=== PATIENT | female | born 1980 | race American Indian/Alaskan Native ===

== ENCOUNTER 2017-02-11 11:31 | Emergency (ER) | payer BC, MEDICAID, MEDICARE, OTHER ==
[2017-02-11 12:05] VITALS: BP 118/69
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
[2017-02-11] MEDS ORDERED: Sodium Chloride 0.9% 10 ML Syringe FLUSH PRN (12:38)
[2017-02-11] MEDS ORDERED: HYDROmorphone 0.5 MG/0.5 ML Syringe IVPUSH ONE ×2 (12:38→14:18)
--- NOTE | 2017-02-11 14:27 | CR ---
Left knee: AP, lateral and sunrise patellar views of the left knee were obtained. Comparison: No previous knee study. Medial and lateral joint spaces are maintained in height. No joint effusion is seen. No fracture or other bony abnormality is seen. Impression: 1. No bony abnormality is identified on left knee exam. Diagnostic code #1
--- NOTE | 2017-02-11 14:27 | CR ---
Right knee: AP, lateral and sunrise patellar views of the right knee were obtained. Comparison: No previous knee study. Medial and lateral joint spaces are preserved. No joint effusion is seen. Patellofemoral joint is within normal limits. No fracture or dislocation is seen. Impression: 1. No abnormality is identified on three-view right knee exam. Diagnostic code #1
--- NOTE | 2017-02-11 14:27 | CR ---
Lumbar spine: AP, lateral and coned-down lateral views centered to the lumbosacral junction were obtained. Comparison: No previous lumbar spine imaging. Vertebral body heights and disc spaces are preserved. Pedicles as well as transverse and spinous processes are intact. No fracture or subluxation is seen. Incidental surgical clips seen overlying the left sacrum. Oval metallic density overlies the left upper abdomen. No fracture or subluxation is seen. Impression: 1. Incidental surgical material. 2. Three-view lumbar spine study is otherwise unremarkable. Diagnostic code #2
== END 2017-02-11 14:45 | disposition home or self-care (01) ==
LOC: JD.ED 11:31
DX: M54.41 Lumbago with sciatica, right side (principal); M25.561 Pain in right knee; J45.909 Unspecified asthma, uncomplicated; J44.9 Chronic obstructive pulmonary disease, unspecified; Z90.49 Acquired absence of other specified parts of digestive tract; Z98.890 Other specified postprocedural states; F17.210 Nicotine dependence, cigarettes, uncomplicated; Z91.040 Latex allergy status; Z79.899 Other long term (current) drug therapy; W01.0XXA Fall on same level from slipping, tripping and stumbling without subsequent striking against object, initial encounter
CPT/HCPCS: 72100; 73562; 96374; 96376; 99284; J1170; J7050

== ENCOUNTER 2017-03-13 17:27 | Inpatient (IN) | payer BC, MEDICAID, MEDICARE, OTHER ==
[2017-03-13] MEDS ORDERED: Ondansetron 4 MG/2 ML SDV IVPUSH ONE ×2 (17:50→20:34)
[2017-03-13] MEDS ORDERED: Sodium Chloride 0.9% 10 ML Syringe FLUSH PRN (17:50)
[2017-03-13] MEDS ORDERED: Sodium Chloride 0.9% 1,000 ML IV STA (17:50)
[2017-03-13] MEDS ORDERED: HYDROmorphone 1 MG/ML Syringe IVPUSH ONE ×2 (17:52→19:20)
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
[2017-03-13] MEDS ORDERED: Sodium Chloride 0.9% 10 ML Syringe FLUSH ONE (19:18)
[2017-03-13] MEDS ORDERED: Iopamidol 612 MG/ML 150 ML Bottle IVPUSH ONE (19:18)
[2017-03-13] MEDS ORDERED: Diatrizoate Meglumine/Diatrizoate Sodium 37% 120 ML Bottle PO ONE (19:18)
--- NOTE | 2017-03-13 21:09 | CT ---
CT abdomen and pelvis Technique: Multiple axial sections were obtained from above the dome of the diaphragm inferiorly through the pubic symphysis. Intravenous contrast was utilized. No oral contrast has been given. Delayed images were obtained through the bladder. Comparison: Previous CT abdomen and pelvis exam of 04/11/16. Findings: Diffuse dilated small bowel is seen. Multiple loops of small bowel are seen which contain fluid. Distal small bowel appears decompressed. Etiology for this mid to distal small bowel obstruction is not seen and findings may relate to adhesions. Visualized lung bases shows nothing acute. Liver shows no focal parenchymal abnormality. Surgical clips are seen from previous cholecystectomy. Spleen appears within normal limits. Adrenal glands show no nodule. Pancreas appears within normal limits. Kidneys show symmetric contrast enhancement without hydronephrosis or mass. Aorta shows no aneurysmal dilatation. No retroperitoneal adenopathy or mesenteric abnormalities are seen. No pelvic mass or adenopathy is seen. Mild amount of fluid is seen within the cul-de-sac which is likely reactive from the small bowel obstruction. Delayed images shows contrast within the bladder. Previous gastric bypass surgery is noted. Mild increased stool is noted within the right, transverse and descending colons. Bone window settings were reviewed which appear within normal limits for the patient's age. Impression: 1. Dilated small bowel loops containing fluid. Etiology for this finding is not seen and findings are felt compatible with obstruction within the mid to distal small bowel. Findings most likely relate to adhesions. 2. Other incidental findings. Findings are fairly similar to previous CT exam. Diagnostic code #3
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
[2017-03-13] MEDS ORDERED: Metoprolol Tartrate 5 MG/5 ML SDV IVPUSH PRN (21:57)
[2017-03-13] MEDS ORDERED: hydrALAZINE 20 MG/ML SDV IVPUSH PRN (21:57)
[2017-03-13] MEDS ORDERED: LORazepam 2 MG/ML MDV IV PRN (21:58)
[2017-03-13] MEDS ORDERED: Temazepam 15 MG Cap PO PRN (21:58)
[2017-03-13] MEDS ORDERED: Polyethylene Glycol 3350 Powder 17 GM Packet PO PRN (21:58)
[2017-03-13] MEDS ORDERED: Albuterol/Ipratropium 3.0-0.5 MG/3 ML Neb Soln NEB PRN (21:58)
[2017-03-13] MEDS ORDERED: Bisacodyl 5 MG Tab PO PRN (21:58)
[2017-03-13] MEDS ORDERED: Acetaminophen 325 MG Tab PO PRN (21:58)
[2017-03-13] MEDS ORDERED: Scopolamine 1.5 MG Transdermal Patch TOP ONE (22:04)
[2017-03-13] MEDS ORDERED: diphenhydrAMINE 50 MG/ML SDV IVPUSH ONE (22:06)
[2017-03-13] MEDS ORDERED: SUMAtriptan 50 MG Tab PO PRN (22:07)
[2017-03-13] MEDS: HYDROmorphone 1 MG/ML Syringe IVPUSH PRN (22:28)
[2017-03-13] MEDS: Metoclopramide 10 MG/2 ML SDV IVPUSH SCH (22:31)
[2017-03-14] MEDS: Dextrose 5%-0.45% NaCl 1,000 ML IV SCH ×3 (01:11→22:25)
[2017-03-14] MEDS: HYDROmorphone 1 MG/ML Syringe IVPUSH PRN ×4 (01:11→20:58)
[2017-03-14] MEDS ORDERED: Flu Vaccine 2016-17(36Mos+)/PF 60 MCG/0.5 ML Syringe IM ONE (01:47)
[2017-03-14] MEDS: Metoclopramide 10 MG/2 ML SDV IVPUSH SCH ×4 (04:16→22:27)
[2017-03-14] MEDS ORDERED: Formoterol/Mometasone 200-5 MCG 8.8 GM Inhaler IH SCH (06:00)
--- NOTE | 2017-03-14 06:50 | PCM.PN ---
- General Info Date of Service: 03/14/17 Admission Dx/Problem (Free Text): Small Bowel Obstruction 2/2 Adhesions and Acute Pancreatitis Subjective Update: Follow Up Functional Status: Reports: pain controlled, urinating. Denies: new symptoms - Review of Systems General: Denies: Fever, Weakness, Fatigue, Malaise, Chills HEENT: Reports: no symptoms Pulmonary: Denies: shortness of breath Cardiovascular: Denies: Chest Pain Gastrointestinal: Reports: Abdominal pain, Decreased appetite, Nausea Genitourinary: Reports: no symptoms Musculoskeletal: Reports: back pain, joint pain Skin: Reports: no symptoms Neurological: Reports: No Symptoms. Denies: Confusion, Difficulty Walking, Weakness, Gait Disturbance Psychiatric: Denies: depression, anxiety, agitation, cravings, hallucinations, suicidal ideation, homicidal ideation Systems Review Comment:: No overnight issues. She feels better. Pain is controlled. She has no new complaints. She is not passing gas. - Patient Data Vitals - most recent: Last Vital Signs Temp 36.8 C 03/14/17 04:23 Pulse 87 03/14/17 04:23 Resp 18 03/14/17 04:23 BP 129/74 03/14/17 04:23 Pulse Ox 93 L 03/14/17 04:23 Weight - most recent: 130.209 kg I&O - last 24 hours: Intake & Output 03/13/17 03/13/17 03/14/17 14:59 22:59 06:59 Intake Total 600 Output Total 1050 Balance -450 Lab Results last 24 hrs: Laboratory Results - last 24 hr 03/14/17 Range/Units 05:40 WBC 12.01 H (3.98-10.04) K/mm3 RBC 4.84 (3.98-5.22) M/mm3 Hgb 14.0 (11.2-15.7) gm/L Hct 43.6 (34.1-44.9) % MCV 90.1 (79.4-94.8) fl MCH 28.9 (25.6-32.2) pg MCHC 32.1 L (32.2-35.5) g/dl RDW Std Deviation 43.6 (36.4-46.3) fL Plt Count 394 H (182-369) K/mm3 MPV 10.4 (9.4-12.3) fl Neut % (Auto) 77.3 H (34.0-71.1) % Lymph % (Auto) 12.9 L (19.3-51.7) % [place] % (Auto) 8.9 (4.7-12.5) % Eos % (Auto) 0.5 L (0.7-5.8) Baso % (Auto) 0.2 (0.1-1.2) % Neut # (Auto) 9.29 H (1.56-6.13) K/mm3 Lymph # (Auto) 1.55 (1.18-3.74) K/mm3 [place] # (Auto) 1.07 H (0.24-0.36) K/mm3 Eos # (Auto) 0.06 (0.04-0.36) K/mm3 Baso # (Auto) 0.02 (0.01-0.08) K/mm3 Med Orders - Current: Current Medications Acetaminophen (Tylenol) 650 mg PO Q4H PRN PRN Reason: Pain (Mild 1-3)/fever Hydrocodone Bitart/Acetaminophen ([place] 325-5 Mg) 1 tab PO Q4H PRN PRN Reason: Pain (moderate 4-6) Albuterol/Ipratropium (Duoneb 3.0-0.5 Mg/3 Ml) 3 ml NEB Q4H PRN PRN Reason: Shortness Of Breath/wheezing Bisacodyl (Dulcolax) 5 mg PO DAILY PRN PRN Reason: Constipation Bupropion HCl (Wellbutrin Xl) 150 mg PO DAILY [facility] Duloxetine HCl (Cymbalta) 60 mg PO DAILY [facility] Enoxaparin Sodium (Lovenox) 40 mg SUBCUT Q12HR [facility] Famotidine (Pepcid) 20 mg IVPUSH BID [facility] Hydralazine HCl (Apresoline) 20 mg IVPUSH Q4H PRN PRN Reason: Hypertension Hydromorphone HCl (Dilaudid) 1 mg IVPUSH Q4H PRN PRN Reason: Pain (severe 7-10) Last Admin: 03/14/17 01:11 Dose: 1 mg Dextrose/Sodium Chloride (Dextrose 5%-1/2 Ns) 1,000 mls @ 125 mls/hr IV ASDIRECTED RUBEN Last Admin: 03/14/17 01:11 Dose: 125 mls/hr Erythromycin Lactobionate 250 (mg/ Sodium Chloride) 100 mls @ 100 mls/hr IV Q6H [facility] Last Admin: 03/14/17 04:16 Dose: 100 mls/hr Lorazepam (Ativan) 1 mg IV Q6H PRN PRN Reason: Anxiety Magnesium Sulfate (Pharmacy To Dose - Magnesium Replacement) 1 dose .XX ASDIRECTED [facility] Metoclopramide HCl (Reglan) 10 mg IVPUSH Q6H [facility] Last Admin: 03/14/17 04:16 Dose: 10 mg Metoprolol Tartrate (Lopressor) 5 mg IVPUSH Q4H PRN PRN Reason: Tachycardia Mometasone Furoate/Formoterol Fumar (Dulera 200-5 Mcg) 2 puff IH BID [facility] Montelukast Sodium (Singulair) 10 mg PO DAILY [facility] (Magnesium Citrate [ Magnesium Citrate] 100 Mg) Own Med * 100 mg PO BEDTIME [facility] Polyethylene Glycol (Miralax) 17 gm PO DAILY PRN PRN Reason: Constipation Potassium Chloride (Pharmacy To Dose - Potassium Replacement) 1 dose .XX ASDIRECTED [facility] Pregabalin (Lyrica) 225 mg PO BID [facility] Propranolol HCl (Inderal) 10 mg PO BID [facility] Quetiapine Fumarate (Seroquel) 50 mg PO BEDTIME [facility] Quetiapine Fumarate (Seroquel) 25 mg PO BID [facility] Senna/Docusate Sodium (Senna Plus) 1 tab PO BID PRN PRN Reason: Constipation Sodium Chloride (Saline Flush) 10 ml FLUSH ASDIRECTED PRN PRN Reason: Keep Vein Open Last Admin: 03/13/17 18:02 Dose: 10 ml Sumatriptan Succinate (Imitrex) 50 mg PO ASDIRECTED PRN PRN Reason: Pain Temazepam (Restoril) 30 mg PO BEDTIME PRN PRN Reason: Sleep Discontinued Medications Diatrizoate Meglum/Diatrizoate Sod (Gastrografin 37%) 90 ml PO ONETIME ONE Stop: 03/13/17 19:19 Last Admin: 03/14/17 00:07 Dose: Not Given Diphenhydramine HCl (Benadryl) 25 mg IVPUSH ONETIME ONE Stop: 03/13/17 22:07 Last Admin: 03/13/17 22:34 Dose: 25 mg Hydromorphone HCl (Dilaudid) 1 mg IVPUSH ONETIME ONE Stop: 03/13/17 17:53 Last Admin: 03/13/17 18:03 Dose: 1 mg Hydromorphone HCl (Dilaudid) 1 mg IVPUSH ONETIME ONE Stop: 03/13/17 19:21 Last Admin: 03/13/17 19:26 Dose: 1 mg Sodium Chloride (Normal Saline) 1,000 mls @ 1,000 mls/hr IV .BOLUS STA Stop: 03/13/17 18:49 Last Admin: 03/13/17 18:02 Dose: 1,000 mls/hr Influenza Virus Vaccine (Fluzone/Fluarix Vaccine) 60 mcg IM .ONCE ONE Stop: 03/14/17 01:48 Iopamidol (Isovue-300 (61%)) 150 ml IVPUSH ONETIME ONE Stop: 03/13/17 19:19 Last Admin: 03/13/17 19:40 Dose: 150 ml Mometasone Furoate/Formoterol Fumar (Dulera 200-5 Mcg) 0 puff IH BIDRT [facility] Ondansetron HCl (Zofran) 4 mg IVPUSH ONETIME ONE Stop: 03/13/17 17:51 Last Admin: 03/13/17 18:02 Dose: 4 mg Ondansetron HCl (Zofran) 4 mg IVPUSH ONETIME ONE Stop: 03/13/17 20:35 Last Admin: 03/13/17 20:40 Dose: 4 mg Scopolamine (Transderm-Scop) 1.5 mg TOP ONETIME ONE Stop: 03/13/17 22:05 Last Admin: 03/13/17 22:40 Dose: 1.5 mg Sodium Chloride (Saline Flush) 10 ml FLUSH ONETIME ONE Stop: 03/13/17 19:19 Last Admin: 03/13/17 19:40 Dose: 10 ml - Exam General: alert, oriented, cooperative, no acute distress, other (Morbid Obesity) HEENT: Pupils equal, Pupils reactive, EOMI, Mucous membr. moist/pink, Other (NGT ) Neck: supple, trachea midline, no JVD, no thyromegaly Lungs: Clear to auscultation, Normal respiratory effort Cardiovascular: Regular Rate, Regular Rhythm Abdomen: soft, no distension, tenderness, abnormal bowel sounds. No: rigidity, rebound, guarding (Female) Exam: Deferred Back Exam: normal inspection, decreased range of motion Extremities: no edema, normal pulses, no tenderness/swelling, no clubbing, no cyanosis, no calf tenderness Peripheral Pulses: 2+: posterior tibial (L), posterior tibial (R), dorsalis pedis (L), dorsalis pedis (R) Skin: warm, dry, intact Neurological: no new focal deficit Psy/Mental Status: alert, normal affect, normal mood - Problem List Review Problem List Initiated/Reviewed/Updated: Yes - My Orders Last 24 Hours: My Active Orders 03/13/17 21:57 Metoprolol Tartrate [Lopressor] 5 mg IVPUSH Q4H PRN hydrALAZINE [Apresoline] 20 mg IVPUSH Q4H PRN 03/13/17 21:58 Height and Weight [RC] 04 Intake and Output [RC] 04,16 Oxygen Therapy [RC] PRN Up With Assistance [RC] ASDIRECTED Up to Chair [RC] ASDIRECTED VTE/DVT Education [RC] DAILY Vital Signs [RC] 00,04,08,12,16,20 Acetaminophen [Tylenol] 650 mg PO Q4H PRN Acetaminophen/HYDROcodone [[place] 325-5 MG] 1 tab PO Q4H PRN Albuterol/Ipratropium [DuoNeb 3.0-0.5 MG/3 ML] 3 ml NEB Q4H PRN Bisacodyl [Dulcolax] 5 mg PO DAILY PRN Docusate Sodium/Sennosides [Senna Plus] 1 tab PO BID PRN HYDROmorphone [Dilaudid] 1 mg IVPUSH Q4H PRN LORazepam [Ativan] 1 mg IV Q6H PRN Polyethylene Glycol 3350 [MiraLAX] 17 gm PO DAILY PRN Temazepam [Restoril] 30 mg PO BEDTIME PRN Resuscitation Status Routine 03/13/17 22:00 Dextrose 5%-0.45% NaCl [Dextrose 5%-1/2 NS] 1,000 ml IV ASDIRECTED Magnesium Rep Pharmacy to Dose [Pharmacy to Dose - Magnesium Replacement] 1 dose .XX ASDIRECTED Potassium Rep Pharmacy to Dose [Pharmacy to Dose - Potassium Replacement] 1 dose .XX ASDIRECTED 03/13/17 22:01 RT Aerosol Therapy [RC] ASDIRECTED Consult to Case Management [CONS] Routine Consult to [employer] [CONS] Routine OT Evaluation and Treatment [CONS] Routine PT Evaluation and Treatment [CONS] Routine 03/13/17 22:06 Ambulate [RC] ASDIRECTED 03/13/17 22:07 SUMAtriptan [Imitrex] 50 mg PO ASDIRECTED PRN 03/13/17 22:30 Erythromycin Lactobionate 250 mg Sodium Chloride 0.9% [Normal Saline] 100 ml IV Q6H Metoclopramide [Reglan] 10 mg IVPUSH Q6H 03/13/17 Dinner Nothing per Oral Now Diet [DIET] 03/14/17 05:40 BASIC METABOLIC PANEL,BMP [CHEM] AM C-REACTIVE PROTEIN [CHEM] AM LIPASE [CHEM] AM MAGNESIUM [CHEM] AM 03/14/17 09:00 DULoxetine [Cymbalta] 60 mg PO DAILY Enoxaparin [Lovenox] 40 mg SUBCUT Q12HR Famotidine [Pepcid] 20 mg IVPUSH BID Mometasone/Formoterol [Dulera 200-5 MCG] 2 puff IH BID Montelukast [Singulair] 10 mg PO DAILY Pregabalin [Lyrica] 225 mg PO BID Propranolol [Inderal] 10 mg PO BID QUEtiapine [SEROquel] 25 mg PO BID buPROPion [Wellbutrin XL] 150 mg PO DAILY 03/14/17 21:00 Magnesium Citrate [Magnesium Citrate] 100 mg PO BEDTIME QUEtiapine [SEROquel] 50 mg PO BEDTIME 03/15/17 05:11 BASIC METABOLIC PANEL,BMP [CHEM] AM C-REACTIVE PROTEIN [CHEM] AM CBC WITH AUTO DIFF [HEME] AM MAGNESIUM [CHEM] AM 03/16/17 05:11 BASIC METABOLIC PANEL,BMP [CHEM] AM C-REACTIVE PROTEIN [CHEM] AM CBC WITH AUTO DIFF [HEME] AM MAGNESIUM [CHEM] AM 03/17/17 05:11 BASIC METABOLIC PANEL,BMP [CHEM] AM C-REACTIVE PROTEIN [CHEM] AM CBC WITH AUTO DIFF [HEME] AM MAGNESIUM [CHEM] AM - Plan Plan:: Assessment/Plan: Acute: Small Bowel Obstruction from Adhesions - Partial: Last BM yesterday soft stool, she is not passing gas - Symptoms started yesterday - Risk factors: Hx/o Multiple Abdominal Surgery, Multiple Meds with Anti- cholinergic effects, Narcotic Pain Pill she took for 8 days - Hx/o Multiple Abdominal Surgery: Gastric Bypass, Appendectomy, Cholecystectomy, and Tubal Ligation - NGT for Therapeutic treatment - Supportive Care, PRN, Anti-emesis and Pain Meds - NPO except po meds, sips of water and ice chips - Consider GS consult if no improvement with medical management Constipation - She is alot on anti-cholinergic meds - Worsened by her recent intake of narcotics from recent fall - CT scan shows increased stools in the colon - PRN Rectal Suppository Leukocytosis - WBC 17.63---> 12.01 - CRP is 1.8---> 1.6 - Likely reactive process - Will monitor HLD - Will start statin once po meal - ADA diet once po meal Resolved: S/p Nausea and Vomiting - 2/2 Above - Supportive Care and PRN Meds Acute Pancreatitis, Unclear in etiology - Lipase 915---> 175 (Essentially resolved) - [place]'s Criteria: 1 WBC > 16K fro now LDH is missing - Lipid Panel - Supportive Care - PRN meds for symptomatic control Chronic: Asthma/COPD Chronic Migraines Chronic Back Pain OA Scoliosis Hallucinations/Psychosis Anxiety/Depression Hx/o Recent Fall Obesity with BMI 43 Plan: She is clinically stable Continue current treatment Routine AM Labs Continue PT/OT Ambulate QID as tolerated SW/CM for d/c planning Additional orders as above Code status:1
[2017-03-14] MEDS: Formoterol/Mometasone 200-5 MCG 8.8 GM Inhaler IH SCH ×2 (08:04→21:00)
[2017-03-14] MEDS: buPROPion 150 MG Tab.ER PO SCH (08:27)
[2017-03-14] MEDS: Propranolol 10 MG Tab PO SCH ×2 (08:27→20:48)
[2017-03-14] MEDS: Montelukast 10 MG Tab PO SCH (08:27)
[2017-03-14] MEDS: Enoxaparin 40 MG/0.4 ML Syringe SUBCUT SCH ×2 (08:28→20:48)
[2017-03-14] MEDS: Pregabalin 75 MG Cap PO SCH ×2 (08:28→20:48)
[2017-03-14] MEDS: DULoxetine 30 MG Cap PO SCH (08:28)
[2017-03-14] MEDS: Famotidine 20 MG/2 ML SDV IVPUSH SCH ×2 (08:28→20:47)
[2017-03-14] MEDS ORDERED: QUEtiapine 25 MG Tab PO SCH (09:00)
[2017-03-14] MEDS: Acetaminophen/HYDROcodone 325-5 MG Tab PO PRN (11:24)
[2017-03-14] MEDS ORDERED: Sodium Chloride 0.9% 10 ML Syringe FLUSH PRN (13:09)
[2017-03-14] MEDS: QUEtiapine 25 MG Tab PO SCH ×2 (19:50→20:48)
[2017-03-14] MEDS: Magnesium Oxide 400 MG Tab PO SCH (20:47)
[2017-03-14] MEDS: Azithromycin 250 MG in Sodium Chloride 0.9% 250 ML IV SCH (22:26)
[2017-03-15] MEDS: Metoclopramide 10 MG/2 ML SDV IVPUSH SCH ×5 (03:43→21:38)
[2017-03-15] MEDS: Dextrose 5%-0.45% NaCl 1,000 ML IV SCH ×2 (06:40→15:03)
[2017-03-15] MEDS: Formoterol/Mometasone 200-5 MCG 8.8 GM Inhaler IH SCH ×2 (08:26→20:42)
[2017-03-15] MEDS: DULoxetine 30 MG Cap PO SCH (09:06)
[2017-03-15] MEDS: Montelukast 10 MG Tab PO SCH (09:06)
[2017-03-15] MEDS: buPROPion 150 MG Tab.ER PO SCH (09:06)
[2017-03-15] MEDS: Propranolol 10 MG Tab PO SCH ×2 (09:06→21:39)
[2017-03-15] MEDS: Pregabalin 75 MG Cap PO SCH ×2 (09:06→21:39)
[2017-03-15] MEDS: QUEtiapine 25 MG Tab PO SCH ×3 (09:06→21:42)
[2017-03-15] MEDS: Acetaminophen/HYDROcodone 325-5 MG Tab PO PRN (09:07)
[2017-03-15] MEDS: Enoxaparin 40 MG/0.4 ML Syringe SUBCUT SCH ×2 (09:07→21:39)
[2017-03-15] MEDS: Famotidine 20 MG/2 ML SDV IVPUSH SCH ×2 (09:07→21:38)
[2017-03-15] MEDS ORDERED: Ondansetron 4 MG/2 ML SDV IVPUSH PRN (10:01)
--- NOTE | 2017-03-15 10:24 | PCM.PN ---
- General Info Date of Service: 03/15/17 Admission Dx/Problem (Free Text): Small Bowel Obstruction 2/2 Adhesions and Acute Pancreatitis Patient seen this morning; sitting up at bedside, feeling much better. Abdominal pain is much improved, still some nausea but improved. She is passing gas as of last night but no BM yet. Still with NG tube in place. VSS, afebrile. She is hungry this morning. Slept well overnight, no other new complaints or concerns this morning. Functional Status: Reports: pain controlled, ambulating (has been up ambulatory x 1 this morning), urinating. Denies: tolerating diet (NPO), new symptoms - Review of Systems General: Reports: No Symptoms HEENT: Reports: no symptoms Pulmonary: Reports: no symptoms Cardiovascular: Reports: No Symptoms Gastrointestinal: Reports: Abdominal pain, Flatus, Nausea. Denies: Hematochezia , Melena, Vomiting Genitourinary: Reports: no symptoms Musculoskeletal: Reports: no symptoms Skin: Reports: no symptoms Neurological: Reports: No Symptoms Psychiatric: Reports: no symptoms - Patient Data Vitals - most recent: Last Vital Signs Temp 98.2 F 03/15/17 08:19 Pulse 56 L 03/15/17 09:06 Resp 15 03/15/17 08:19 BP 120/62 03/15/17 09:06 Pulse Ox 97 03/15/17 08:26 Weight - most recent: 290 lb I&O - last 24 hours: Intake & Output 03/14/17 03/15/17 03/15/17 22:59 06:59 14:59 Intake Total 700 1275 Output Total 400 500 Balance 300 775 Lab Results last 24 hrs: Laboratory Results - last 24 hr 03/14/17 03/15/17 03/15/17 Range/Units 16:40 06:13 06:13 WBC 6.75 (3.98-10.04) K/mm3 RBC 3.86 L (3.98-5.22) M/mm3 Hgb 11.5 (11.2-15.7) gm/L Hct 35.6 (34.1-44.9) % MCV 92.2 (79.4-94.8) fl MCH 29.8 (25.6-32.2) pg MCHC 32.3 (32.2-35.5) g/dl RDW Std Deviation 44.4 (36.4-46.3) fL Plt Count 320 (182-369) K/mm3 MPV 10.3 (9.4-12.3) fl Neut % (Auto) 58.7 (34.0-71.1) % Lymph % (Auto) 28.3 (19.3-51.7) % [place] % (Auto) 9.9 (4.7-12.5) % Eos % (Auto) 2.7 (0.7-5.8) Baso % (Auto) 0.3 (0.1-1.2) % Neut # (Auto) 3.96 (1.56-6.13) K/mm3 Lymph # (Auto) 1.91 (1.18-3.74) K/mm3 [place] # (Auto) 0.67 H (0.24-0.36) K/mm3 Eos # (Auto) 0.18 (0.04-0.36) K/mm3 Baso # (Auto) 0.02 (0.01-0.08) K/mm3 Sodium 142 (136-145) mEq/L Potassium 3.7 (3.5-5.1) mEq/L Chloride 111 H (98-107) mEq/L Carbon Dioxide 24 (21-32) mEq/L Anion Gap 10.7 (5-15) BUN 10 (7-18) mg/dL Creatinine 0.7 (0.55-1.02) mg/dL Est Cr Clr Drug Dosing 112.08 mL/min Estimated GFR (MDRD) > 60 (>60) mL/min BUN/Creatinine Ratio 14.3 (14-18) Glucose 92 (74-106) mg/dL Calcium 7.8 L (8.5-10.1) mg/dL Magnesium 1.9 (1.8-2.4) mg/dl C-Reactive Protein 1.1 H* (<1.0) mg/dL Urine Color Lashawn H (Yellow) Urine Appearance Clear (Clear) Urine pH 5.5 (5.0-8.0) Ur Specific [place] > or = 1.030 (1.005-1.030) Urine Protein 1+ H (Negative) Urine Glucose (UA) Negative (Negative) Urine Ketones Negative (Negative) Urine Occult Blood Negative (Negative) Urine Nitrite Negative (Negative) Urine Bilirubin 1+ H (Negative) Urine Urobilinogen 2.0 H (0.2-1.0) Ur Leukocyte Esterase Negative (Negative) Urine RBC 0-5 (0-5) /hpf Urine WBC 0-5 (0-5) /hpf Ur Epithelial Cells Not Reportable Ur Squamous Epith Cells 20-30 H (0-5) /hpf Urine Bacteria Few (FEW) /hpf Urine Mucus Many H (FEW) /hpf Med Orders - Current: Current Medications Acetaminophen (Tylenol) 650 mg PO Q4H PRN PRN Reason: Pain (Mild 1-3)/fever Hydrocodone Bitart/Acetaminophen ([place] 325-5 Mg) 1 tab PO Q4H PRN PRN Reason: Pain (moderate 4-6) Last Admin: 03/15/17 09:07 Dose: 1 tab Albuterol/Ipratropium (Duoneb 3.0-0.5 Mg/3 Ml) 3 ml NEB Q4H PRN PRN Reason: Shortness Of Breath/wheezing Bisacodyl (Dulcolax) 5 mg PO DAILY PRN PRN Reason: Constipation Bupropion HCl (Wellbutrin Xl) 150 mg PO DAILY [facility] Last Admin: 03/15/17 09:06 Dose: 150 mg Duloxetine HCl (Cymbalta) 60 mg PO DAILY [facility] Last Admin: 03/15/17 09:06 Dose: 60 mg Enoxaparin Sodium (Lovenox) 40 mg SUBCUT Q12HR [facility] Last Admin: 03/15/17 09:07 Dose: 40 mg Famotidine (Pepcid) 20 mg IVPUSH BID [facility] Last Admin: 03/15/17 09:07 Dose: 20 mg Hydralazine HCl (Apresoline) 20 mg IVPUSH Q4H PRN PRN Reason: Hypertension Hydromorphone HCl (Dilaudid) 1 mg IVPUSH Q4H PRN PRN Reason: Pain (severe 7-10) Last Admin: 03/14/17 20:58 Dose: 1 mg Dextrose/Sodium Chloride (Dextrose 5%-1/2 Ns) 1,000 mls @ 125 mls/hr IV ASDIRECTED [facility] Last Admin: 03/15/17 06:40 Dose: 125 mls/hr Azithromycin 250 mg/ Sodium (Chloride) 250 mls @ 250 mls/hr IV Q24H [facility] Last Admin: 03/14/17 22:26 Dose: 250 mls/hr Lorazepam (Ativan) 1 mg IV Q6H PRN PRN Reason: Anxiety Magnesium Oxide (Magnesium Oxide) 400 mg PO BEDTIME [facility] Last Admin: 03/14/17 20:47 Dose: 400 mg Magnesium Sulfate (Pharmacy To Dose - Magnesium Replacement) 0 dose .XX ASDIRECTED PRN PRN Reason: rx dose Metoclopramide HCl (Reglan) 10 mg IVPUSH Q6H [facility] Last Admin: 03/15/17 09:07 Dose: 10 mg Metoprolol Tartrate (Lopressor) 5 mg IVPUSH Q4H PRN PRN Reason: Tachycardia Mometasone Furoate/Formoterol Fumar (Dulera 200-5 Mcg) 2 puff IH BID [facility] Last Admin: 03/15/17 08:26 Dose: 2 puff Montelukast Sodium (Singulair) 10 mg PO DAILY [facility] Last Admin: 03/15/17 09:06 Dose: 10 mg Ondansetron HCl (Zofran) 4 mg IVPUSH Q8H PRN PRN Reason: Nausea Polyethylene Glycol (Miralax) 17 gm PO DAILY PRN PRN Reason: Constipation Potassium Chloride (Pharmacy To Dose - Potassium Replacement) 0 dose .XX ASDIRECTED PRN PRN Reason: rx dose Pregabalin (Lyrica) 225 mg PO BID [facility] Last Admin: 03/15/17 09:06 Dose: 225 mg Propranolol HCl (Inderal) 10 mg PO BID [facility] Last Admin: 03/15/17 09:06 Dose: 10 mg Quetiapine Fumarate (Seroquel) 50 mg PO BEDTIME [facility] Last Admin: 03/14/17 20:48 Dose: 50 mg Quetiapine Fumarate (Seroquel) 25 mg PO BID@0900,1800 [facility] Last Admin: 03/15/17 09:06 Dose: 25 mg Senna/Docusate Sodium (Senna Plus) 1 tab PO BID PRN PRN Reason: Constipation Sodium Chloride (Saline Flush) 10 ml FLUSH ASDIRECTED PRN PRN Reason: Keep Vein Open Sumatriptan Succinate (Imitrex) 50 mg PO ASDIRECTED PRN PRN Reason: Pain Temazepam (Restoril) 30 mg PO BEDTIME PRN PRN Reason: Sleep Discontinued Medications Diatrizoate Meglum/Diatrizoate Sod (Gastrografin 37%) 90 ml PO ONETIME ONE Stop: 03/13/17 19:19 Last Admin: 03/14/17 00:07 Dose: Not Given Diphenhydramine HCl (Benadryl) 25 mg IVPUSH ONETIME ONE Stop: 03/13/17 22:07 Last Admin: 03/13/17 22:34 Dose: 25 mg Hydromorphone HCl (Dilaudid) 1 mg IVPUSH ONETIME ONE Stop: 03/13/17 17:53 Last Admin: 03/13/17 18:03 Dose: 1 mg Hydromorphone HCl (Dilaudid) 1 mg IVPUSH ONETIME ONE Stop: 03/13/17 19:21 Last Admin: 03/13/17 19:26 Dose: 1 mg Sodium Chloride (Normal Saline) 1,000 mls @ 1,000 mls/hr IV .BOLUS STA Stop: 03/13/17 18:49 Last Admin: 03/13/17 18:02 Dose: 1,000 mls/hr Erythromycin Lactobionate 250 (mg/ Sodium Chloride) 100 mls @ 100 mls/hr IV Q6H RUBEN Stop: 03/14/17 20:00 Last Admin: 03/14/17 16:29 Dose: 100 mls/hr Influenza Virus Vaccine (Fluzone/Fluarix Vaccine) 60 mcg IM .ONCE ONE Stop: 03/14/17 01:48 Iopamidol (Isovue-300 (61%)) 150 ml IVPUSH ONETIME ONE Stop: 03/13/17 19:19 Last Admin: 03/13/17 19:40 Dose: 150 ml Mometasone Furoate/Formoterol Fumar (Dulera 200-5 Mcg) 0 puff IH BIDRT RUBEN (Magnesium Citrate [ Magnesium Citrate] 100 Mg) Own Med * 100 mg PO BEDTIME RUBEN Ondansetron HCl (Zofran) 4 mg IVPUSH ONETIME ONE Stop: 03/13/17 17:51 Last Admin: 03/13/17 18:02 Dose: 4 mg Ondansetron HCl (Zofran) 4 mg IVPUSH ONETIME ONE Stop: 03/13/17 20:35 Last Admin: 03/13/17 20:40 Dose: 4 mg Quetiapine Fumarate (Seroquel) 25 mg PO BID RUBEN Last Admin: 03/14/17 08:27 Dose: 25 mg Scopolamine (Transderm-Scop) 1.5 mg TOP ONETIME ONE Stop: 03/13/17 22:05 Last Admin: 03/13/17 22:40 Dose: 1.5 mg Sodium Chloride (Saline Flush) 10 ml FLUSH ASDIRECTED PRN PRN Reason: Keep Vein Open Last Admin: 03/13/17 18:02 Dose: 10 ml Sodium Chloride (Saline Flush) 10 ml FLUSH ONETIME ONE Stop: 03/13/17 19:19 Last Admin: 03/13/17 19:40 Dose: 10 ml - Exam Quality Assessment: DVT prophylaxis General: alert, oriented, cooperative, no acute distress HEENT: Pupils equal, Pupils reactive, EOMI, Mucous membr. moist/pink Neck: supple Lungs: Clear to auscultation, Normal respiratory effort Cardiovascular: Regular Rate, Regular Rhythm Abdomen: bowel sounds present (hypoactive), soft, tenderness (minimal to upper abdomen). No: rigidity, rebound, guarding, distension, organomegaly (Female) Exam: Deferred Back Exam: normal inspection Extremities: no edema, no calf tenderness Peripheral Pulses: 1+: dorsalis pedis (L), dorsalis pedis (R) Skin: warm, dry, intact Neurological: no new focal deficit Psy/Mental Status: alert, normal affect, normal mood - Problem List & Annotations (1) Small bowel obstruction SNOMED Code(s): 438305776 Code(s): K56.69 - OTHER INTESTINAL OBSTRUCTION Status: Acute Priority: High Current Visit: Yes (2) Pancreatitis SNOMED Code(s): 76057047 Code(s): K85.90 - ACUTE PANCREATITIS WITHOUT NECROSIS OR INFECTION, UNSP Status: Acute Priority: High Current Visit: Yes Qualifiers: Chronicity: acute Pancreatitis type: other Acute pancreatitis complication: no infection or necrosis Qualified Code(s): K85.80 - Other acute pancreatitis without necrosis or infection (3) Abdominal pain SNOMED Code(s): 73320725 Code(s): R10.9 - UNSPECIFIED ABDOMINAL PAIN Status: Acute Priority: High Current Visit: Yes (4) S/P gastric bypass SNOMED Code(s): 257881884, 89503508, 381264920, 050649450 Code(s): Z98.84 - BARIATRIC SURGERY STATUS Status: Chronic Priority: Medium Current Visit: No - Problem List Review Problem List Initiated/Reviewed/Updated: Yes - My Orders Last 24 Hours: My Active Orders 03/15/17 10:01 Ondansetron [Zofran] 4 mg IVPUSH Q8H PRN - Plan Plan:: Assessment/Plan: Acute: Small Bowel Obstruction from Adhesions - Partial: Last BM 1 day prior to admission soft stool, she is now passing gas as of last night - Risk factors: Hx/o Multiple Abdominal Surgery, Multiple Meds with Anti- cholinergic effects, Narcotic Pain Pill she took for 8 days - Hx/o Multiple Abdominal Surgery: Gastric Bypass, Appendectomy, Cholecystectomy, and Tubal Ligation - NGT for Therapeutic treatment- will discuss output with nursing and likely discontinue today - Supportive Care, PRN, Anti-emesis and Pain Meds - Reglan and azithromycin for prokinetic - NPO except po meds, sips of water and ice chips-- will advance to clear liquids this morning, advance as tolerated - Consider GS consult if no improvement with medical management Constipation - She is on a lot of anti-cholinergic meds - Worsened by her recent intake of narcotics from recent fall - CT scan shows increased stools in the colon - PRN Rectal Suppository Leukocytosis - WBC 17.63---> 12.01--normal today - CRP is 1.8---> 1.6 - Likely reactive process - Will monitor HLD - Will start statin once po meal - ADA diet once po meal Resolved: S/p Nausea and Vomiting - 2/2 Above - Supportive Care and PRN Meds Acute Pancreatitis, Unclear in etiology - Lipase 915---> 175 (Essentially resolved) - [place]'s Criteria: 1 WBC > 16K fro now LDH is missing - Lipid Panel - Supportive Care - PRN meds for symptomatic control Chronic: Asthma/COPD Chronic Migraines Chronic Back Pain OA Scoliosis Hallucinations/Psychosis Anxiety/Depression Hx/o Recent Fall Obesity with BMI 43 Plan: She is clinically stable Continue current treatment Routine AM Labs Continue PT/OT Ambulate QID as tolerated--doing well with this SW/CM for d/c planning Additional orders as above Code status:1
[2017-03-15] MEDS: Azithromycin 250 MG in Sodium Chloride 0.9% 250 ML IV SCH (21:38)
[2017-03-15] MEDS: Magnesium Oxide 400 MG Tab PO SCH (21:39)
[2017-03-16] MEDS: Dextrose 5%-0.45% NaCl 1,000 ML IV SCH (00:08)
[2017-03-16] MEDS: Metoclopramide 10 MG/2 ML SDV IVPUSH SCH ×2 (04:50→09:50)
--- NOTE | 2017-03-16 08:16 | CR ---
Abdomen: Supine and upright views of the abdomen were obtained. Comparison: Previous CT exam of 03/13/17. Several small bowel loops containing air noted within the mid abdomen. Small bowel has significantly decreased in prominence from prior CT exam. Several air-fluid levels seen within small bowel on the upright view. Surgical clips seen from prior cholecystectomy as well as several other surgical clips within the abdomen and pelvis. No free air is seen. Bony structures are unremarkable. Impression: 1. Minimal prominence of small bowel within the mid abdomen containing several air-fluid levels. Small bowel shows significant improvement from prior CT exam of 03/13/17. 2. Other incidental findings. Diagnostic code #3
--- NOTE | 2017-03-16 08:25 | PCM.PN ---
- General Info Date of Service: 03/16/17 Admission Dx/Problem (Free Text): Small Bowel Obstruction 2/2 Adhesions and Acute Pancreatitis Patient seen this morning; sitting up at bedside, feeling much better. Abdominal pain is much improved, nausea resolved, had BM last night. Tolerating clear liquids without problems. NG was dc'd last evening, tolerating well. VSS, afebrile. She is hungry this morning. Slept well overnight, no other new complaints or concerns this morning. Functional Status: Reports: pain controlled, tolerating diet, ambulating, urinating. Denies: new symptoms - Review of Systems General: Reports: No Symptoms HEENT: Reports: no symptoms Pulmonary: Reports: no symptoms Cardiovascular: Reports: No Symptoms Gastrointestinal: Reports: Abdominal pain (much improved), Flatus. Denies: Nausea, Vomiting Genitourinary: Reports: no symptoms Musculoskeletal: Reports: no symptoms Skin: Reports: no symptoms Neurological: Reports: No Symptoms Psychiatric: Reports: no symptoms - Patient Data Vitals - most recent: Last Vital Signs Temp 98.2 F 03/15/17 21:41 Pulse 60 03/15/17 21:41 Resp 18 03/15/17 21:41 BP 112/62 03/15/17 21:41 Pulse Ox 96 03/15/17 21:41 Weight - most recent: 291 lb 8 oz I&O - last 24 hours: Intake & Output 03/15/17 03/16/17 03/16/17 22:59 06:59 14:59 Intake Total 3060 2225 Output Total 2800 1000 Balance 260 1225 Lab Results last 24 hrs: Laboratory Results - last 24 hr 03/16/17 03/16/17 Range/Units 05:40 06:15 WBC 6.48 (3.98-10.04) K/mm3 RBC 3.90 L (3.98-5.22) M/mm3 Hgb 11.4 (11.2-15.7) gm/L Hct 35.2 (34.1-44.9) % MCV 90.3 (79.4-94.8) fl MCH 29.2 (25.6-32.2) pg MCHC 32.4 (32.2-35.5) g/dl RDW Std Deviation 41.9 (36.4-46.3) fL Plt Count 313 (182-369) K/mm3 MPV 10.6 (9.4-12.3) fl Neut % (Auto) 57.7 (34.0-71.1) % Lymph % (Auto) 30.1 (19.3-51.7) % [place] % (Auto) 10.2 (4.7-12.5) % Eos % (Auto) 1.5 (0.7-5.8) Baso % (Auto) 0.3 (0.1-1.2) % Neut # (Auto) 3.74 (1.56-6.13) K/mm3 Lymph # (Auto) 1.95 (1.18-3.74) K/mm3 [place] # (Auto) 0.66 H (0.24-0.36) K/mm3 Eos # (Auto) 0.10 (0.04-0.36) K/mm3 Baso # (Auto) 0.02 (0.01-0.08) K/mm3 Sodium 146 H (136-145) mEq/L Potassium 3.2 L (3.5-5.1) mEq/L Chloride 112 H (98-107) mEq/L Carbon Dioxide 24 (21-32) mEq/L Anion Gap 13.2 (5-15) BUN 3 L (7-18) mg/dL Creatinine 0.6 (0.55-1.02) mg/dL Est Cr Clr Drug Dosing 130.76 mL/min Estimated GFR (MDRD) > 60 (>60) mL/min BUN/Creatinine Ratio 5.0 L (14-18) Glucose 94 (74-106) mg/dL Calcium 7.9 L (8.5-10.1) mg/dL Magnesium 2.0 (1.8-2.4) mg/dl Med Orders - Current: Current Medications Acetaminophen (Tylenol) 650 mg PO Q4H PRN PRN Reason: Pain (Mild 1-3)/fever Hydrocodone Bitart/Acetaminophen ([place] 325-5 Mg) 1 tab PO Q4H PRN PRN Reason: Pain (moderate 4-6) Last Admin: 03/15/17 09:07 Dose: 1 tab Albuterol/Ipratropium (Duoneb 3.0-0.5 Mg/3 Ml) 3 ml NEB Q4H PRN PRN Reason: Shortness Of Breath/wheezing Bisacodyl (Dulcolax) 5 mg PO DAILY PRN PRN Reason: Constipation Bupropion HCl (Wellbutrin Xl) 150 mg PO DAILY [facility] Last Admin: 03/15/17 09:06 Dose: 150 mg Duloxetine HCl (Cymbalta) 60 mg PO DAILY [facility] Last Admin: 03/15/17 09:06 Dose: 60 mg Enoxaparin Sodium (Lovenox) 40 mg SUBCUT Q12HR [facility] Last Admin: 03/15/17 21:39 Dose: 40 mg Famotidine (Pepcid) 20 mg IVPUSH BID [facility] Last Admin: 03/15/17 21:38 Dose: 20 mg Hydralazine HCl (Apresoline) 20 mg IVPUSH Q4H PRN PRN Reason: Hypertension Hydromorphone HCl (Dilaudid) 1 mg IVPUSH Q4H PRN PRN Reason: Pain (severe 7-10) Last Admin: 03/14/17 20:58 Dose: 1 mg Dextrose/Sodium Chloride (Dextrose 5%-1/2 Ns) 1,000 mls @ 125 mls/hr IV ASDIRECTED [facility] Last Admin: 03/16/17 00:08 Dose: 125 mls/hr Azithromycin 250 mg/ Sodium (Chloride) 250 mls @ 250 mls/hr IV Q24H [facility] Last Admin: 03/15/17 21:38 Dose: 250 mls/hr Lorazepam (Ativan) 1 mg IV Q6H PRN PRN Reason: Anxiety Magnesium Oxide (Magnesium Oxide) 400 mg PO BEDTIME [facility] Last Admin: 03/15/17 21:39 Dose: 400 mg Magnesium Sulfate (Pharmacy To Dose - Magnesium Replacement) 0 dose .XX ASDIRECTED PRN PRN Reason: rx dose Metoclopramide HCl (Reglan) 10 mg IVPUSH Q6H [facility] Last Admin: 03/16/17 04:50 Dose: 10 mg Metoprolol Tartrate (Lopressor) 5 mg IVPUSH Q4H PRN PRN Reason: Tachycardia Mometasone Furoate/Formoterol Fumar (Dulera 200-5 Mcg) 2 puff IH BID [facility] Last Admin: 03/15/17 20:42 Dose: 2 puff Montelukast Sodium (Singulair) 10 mg PO DAILY [facility] Last Admin: 03/15/17 09:06 Dose: 10 mg Ondansetron HCl (Zofran) 4 mg IVPUSH Q8H PRN PRN Reason: Nausea Polyethylene Glycol (Miralax) 17 gm PO DAILY PRN PRN Reason: Constipation Potassium Chloride (Pharmacy To Dose - Potassium Replacement) 0 dose .XX ASDIRECTED PRN PRN Reason: rx dose Potassium Chloride (Potassium Chloride Solution) 20 meq PO Q3H [facility] Stop: 03/16/17 12:01 Pregabalin (Lyrica) 225 mg PO BID [facility] Last Admin: 03/15/17 21:39 Dose: 225 mg Propranolol HCl (Inderal) 10 mg PO BID [facility] Last Admin: 03/15/17 21:39 Dose: 10 mg Quetiapine Fumarate (Seroquel) 50 mg PO BEDTIME [facility] Last Admin: 03/15/17 21:42 Dose: 50 mg Quetiapine Fumarate (Seroquel) 25 mg PO BID@0900,1800 [facility] Last Admin: 03/15/17 17:29 Dose: 25 mg Senna/Docusate Sodium (Senna Plus) 1 tab PO BID PRN PRN Reason: Constipation Sodium Chloride (Saline Flush) 10 ml FLUSH ASDIRECTED PRN PRN Reason: Keep Vein Open Sumatriptan Succinate (Imitrex) 50 mg PO ASDIRECTED PRN PRN Reason: Pain Temazepam (Restoril) 30 mg PO BEDTIME PRN PRN Reason: Sleep Discontinued Medications Diatrizoate Meglum/Diatrizoate Sod (Gastrografin 37%) 90 ml PO ONETIME ONE Stop: 03/13/17 19:19 Last Admin: 03/14/17 00:07 Dose: Not Given Diphenhydramine HCl (Benadryl) 25 mg IVPUSH ONETIME ONE Stop: 03/13/17 22:07 Last Admin: 03/13/17 22:34 Dose: 25 mg Hydromorphone HCl (Dilaudid) 1 mg IVPUSH ONETIME ONE Stop: 03/13/17 17:53 Last Admin: 03/13/17 18:03 Dose: 1 mg Hydromorphone HCl (Dilaudid) 1 mg IVPUSH ONETIME ONE Stop: 03/13/17 19:21 Last Admin: 03/13/17 19:26 Dose: 1 mg Sodium Chloride (Normal Saline) 1,000 mls @ 1,000 mls/hr IV .BOLUS STA Stop: 03/13/17 18:49 Last Admin: 03/13/17 18:02 Dose: 1,000 mls/hr Erythromycin Lactobionate 250 (mg/ Sodium Chloride) 100 mls @ 100 mls/hr IV Q6H [facility] Stop: 03/14/17 20:00 Last Admin: 03/14/17 16:29 Dose: 100 mls/hr Influenza Virus Vaccine (Fluzone/Fluarix Vaccine) 60 mcg IM .ONCE ONE Stop: 03/14/17 01:48 Iopamidol (Isovue-300 (61%)) 150 ml IVPUSH ONETIME ONE Stop: 03/13/17 19:19 Last Admin: 03/13/17 19:40 Dose: 150 ml Mometasone Furoate/Formoterol Fumar (Dulera 200-5 Mcg) 0 puff IH BIDRT RUBEN (Magnesium Citrate [ Magnesium Citrate] 100 Mg) Own Med * 100 mg PO BEDTIME [facility] Ondansetron HCl (Zofran) 4 mg IVPUSH ONETIME ONE Stop: 03/13/17 17:51 Last Admin: 03/13/17 18:02 Dose: 4 mg Ondansetron HCl (Zofran) 4 mg IVPUSH ONETIME ONE Stop: 03/13/17 20:35 Last Admin: 03/13/17 20:40 Dose: 4 mg Quetiapine Fumarate (Seroquel) 25 mg PO BID [facility] Last Admin: 03/14/17 08:27 Dose: 25 mg Scopolamine (Transderm-Scop) 1.5 mg TOP ONETIME ONE Stop: 03/13/17 22:05 Last Admin: 03/13/17 22:40 Dose: 1.5 mg Sodium Chloride (Saline Flush) 10 ml FLUSH ASDIRECTED PRN PRN Reason: Keep Vein Open Last Admin: 03/13/17 18:02 Dose: 10 ml Sodium Chloride (Saline Flush) 10 ml FLUSH ONETIME ONE Stop: 03/13/17 19:19 Last Admin: 03/13/17 19:40 Dose: 10 ml - Exam Quality Assessment: DVT prophylaxis General: alert, oriented, cooperative, no acute distress HEENT: Pupils equal, Pupils reactive, EOMI, Mucous membr. moist/pink Neck: supple Lungs: Clear to auscultation, Normal respiratory effort Cardiovascular: Regular Rate, Regular Rhythm Abdomen: bowel sounds present, soft, no tenderness, no distension. No: rigidity , rebound, guarding, tenderness, distension (Female) Exam: Deferred Back Exam: normal inspection Extremities: no edema Peripheral Pulses: 1+: dorsalis pedis (L), dorsalis pedis (R) Skin: warm, dry, intact Neurological: no new focal deficit Psy/Mental Status: alert, normal affect, normal mood - Problem List & Annotations (1) Small bowel obstruction SNOMED Code(s): 847684232 Code(s): K56.69 - OTHER INTESTINAL OBSTRUCTION Status: Acute Priority: High Current Visit: Yes (2) Pancreatitis SNOMED Code(s): 02871329 Code(s): K85.90 - ACUTE PANCREATITIS WITHOUT NECROSIS OR INFECTION, UNSP Status: Resolved Priority: High Current Visit: Yes Qualifiers: Chronicity: acute Pancreatitis type: other Acute pancreatitis complication: no infection or necrosis Qualified Code(s): K85.80 - Other acute pancreatitis without necrosis or infection (3) Abdominal pain SNOMED Code(s): 77812935 Code(s): R10.9 - UNSPECIFIED ABDOMINAL PAIN Status: Resolved Priority: High Current Visit: Yes (4) S/P gastric bypass SNOMED Code(s): 506165347, 96222037, 303636585, 464034299 Code(s): Z98.84 - BARIATRIC SURGERY STATUS Status: Chronic Priority: Medium Current Visit: No - Problem List Review Problem List Initiated/Reviewed/Updated: Yes - My Orders Last 24 Hours: My Active Orders 03/15/17 10:01 Ondansetron [Zofran] 4 mg IVPUSH Q8H PRN 03/16/17 Breakfast Full Liquid Diet [DIET] - Plan Plan:: Assessment/Plan: Acute: Small Bowel Obstruction from Adhesions - Partial: BM last evening, tolerating clear liquids, NG dc'd last night- doing well - Risk factors: Hx/o Multiple Abdominal Surgery, Multiple Meds with Anti- cholinergic effects, Narcotic Pain Pill she took for 8 days - Hx/o Multiple Abdominal Surgery: Gastric Bypass, Appendectomy, Cholecystectomy, and Tubal Ligation - Supportive Care, PRN, Anti-emesis and Pain Meds - Reglan and azithromycin for prokinetic - Abd xray shows resolving/resolved SBO today - Will advance diet today, likely dc home if tolerating regular diet later today Constipation - She is on a lot of anti-cholinergic meds - Worsened by her recent intake of narcotics from recent fall - CT scan shows increased stools in the colon - PRN Rectal Suppository - Discussed bowel regimen for home/discharge Leukocytosis--Resolved - WBC 17.63---> 12.01--normal today - CRP is 1.8---> 1.6 - Likely reactive process - Will monitor HLD - Will start statin as able to take PO now - Heart healthy diet Resolved: S/p Nausea and Vomiting - 2/2 Above - Supportive Care and PRN Meds Acute Pancreatitis, Unclear in etiology - Lipase 915---> 175 (Essentially resolved) - [place]'s Criteria: 1 WBC > 16K fro now LDH is missing - Lipid Panel - Supportive Care - PRN meds for symptomatic control Chronic: Asthma/COPD Chronic Migraines Chronic Back Pain OA Scoliosis Hallucinations/Psychosis Anxiety/Depression Hx/o Recent Fall Obesity with BMI 43 Plan: She is clinically stable Continue current treatment-- plan to advance diet today, if tolerates will dc later today Routine AM Labs Continue PT/OT Ambulate QID as tolerated--doing well with this SW/CM for d/c planning Additional orders as above Code status:1
[2017-03-16] MEDS: Formoterol/Mometasone 200-5 MCG 8.8 GM Inhaler IH SCH (08:53)
[2017-03-16] MEDS: Potassium Chloride 10% 20 MEQ/15 ML Soln 15 ML UD Cup PO SCH ×2 (09:49→12:10)
[2017-03-16] MEDS: Enoxaparin 40 MG/0.4 ML Syringe SUBCUT SCH (09:49)
[2017-03-16] MEDS: Famotidine 20 MG/2 ML SDV IVPUSH SCH (09:50)
[2017-03-16] MEDS: DULoxetine 30 MG Cap PO SCH (09:50)
[2017-03-16] MEDS: Pregabalin 75 MG Cap PO SCH (09:50)
[2017-03-16] MEDS: QUEtiapine 25 MG Tab PO SCH (09:50)
[2017-03-16] MEDS: buPROPion 150 MG Tab.ER PO SCH (09:51)
[2017-03-16] MEDS: Propranolol 10 MG Tab PO SCH (09:51)
[2017-03-16] MEDS: Montelukast 10 MG Tab PO SCH (09:54)
[2017-03-16 09:57] VITALS: BP 117/66
[2017-03-16] MEDS ORDERED: Rosuvastatin 10 MG Tab PO SCH (10:30)
--- NOTE | 2017-03-16 10:35 | PCM.DCSUM1 ---
Discharge Summary - Hospital Course Free Text/Narrative:: This is a 36 yo female with past medical hx/o Asthma/COPD, Chronic Migraines, Chronic Back Pain, OA, Scoliosis, Hx/o hallucinations/ Psychosis, Anxiety, Depression and Morbid Obesity who comes in with complaints of severe generalized abdominal pain associated with nausea and vomiting that started this morning. She denies eating or drinking unusual diet. Her last bowel movement was soft and was yesterday. She denies passing gas. She reports no systemic illness. No fever or chills. Patient carries a hx/o multiple recurrent SBO related to Adhesions from multiple abdominal surgery in the past. Her last admission related to SBO was over a year ago wherein she improved with medical treatment. Her past abdominal surgery includes appendectomy, cholecystectomy, gastric by pass and tubal ligation. Patient denies recent abdominal surgery. However she admits to being on narcotic pain pills and muscle relaxant after a recent non-traumatic fall. A review of her home maintenance medications show she's on numerous medications with significant anti-cholinergic effects. Her initial labs in ED shows a CBC significant for WBC of 17.63, Hgb of 16.2, HCT of 48.2, Platelet of 449, and Neutrophils of 15.01. Her chemistry is significant for AG of 17, BS of 156, Alk Phos of 185, CRP of 1.8, and Lipase of 915. ETOH is 0. Her Abdominal CT scan shows increased colonic stools, dilated small bowel loops containing fluid compatible with obstruction within the mid- distal small bowel. Patient was admitted for SBO secondary to Adhesions and Acute Pancreatitis. - Discharge Data Discharge Date: 03/16/17 (admit date 03/13/17) Discharge Disposition: Home, Self-Care 01 Condition: Good - Discharge Diagnosis/Problem(s) (1) Small bowel obstruction SNOMED Code(s): 130327374 ICD Code: K56.69 - OTHER INTESTINAL OBSTRUCTION Status: Resolved Priority : High Current Visit: Yes (2) Pancreatitis SNOMED Code(s): 19390170 ICD Code: K85.90 - ACUTE PANCREATITIS WITHOUT NECROSIS OR INFECTION, UNSP Status: Resolved Priority: High Current Visit: Yes Qualifiers: Chronicity: acute Pancreatitis type: other Acute pancreatitis complication: no infection or necrosis Qualified Code(s): K85.80 - Other acute pancreatitis without necrosis or infection (3) Abdominal pain SNOMED Code(s): 38896347 ICD Code: R10.9 - UNSPECIFIED ABDOMINAL PAIN Status: Resolved Priority: High Current Visit: Yes (4) S/P gastric bypass SNOMED Code(s): 667886470, 80234202, 705824154, 712093596 ICD Code: Z98.84 - BARIATRIC SURGERY STATUS Status: Chronic Priority: Medium Current Visit: No (5) Hyperlipidemia SNOMED Code(s): 36178405 ICD Code: E78.5 - HYPERLIPIDEMIA, UNSPECIFIED Status: Chronic Priority: High Current Visit: Yes Qualifiers: Hyperlipidemia type: mixed hyperlipidemia Qualified Code(s): E78.2 - Mixed hyperlipidemia - Patient Summary/Data Operative Procedure(s) Performed: None Complications: None Consults: Consultations 03/13/17 22:01 Consult to Case Management [CONS] Routine Consult to [place] [CONS] Routine OT Evaluation and Treatment [CONS] Routine PT Evaluation and Treatment [CONS] Routine Labs Pending at D/C: None Recommended Follow-up Testing/Procedures: Follow up with PCP within 5-7 days of discharge Push fluids Exercise/walk 30+ minutes daily Planned Operative Procedure(s) after DC: None Hospital Course: As above - Patient Instructions Diet: Heart Healthy Diet, Drink 8-10+ Glasses/Day Activity: As Tolerated (exercise/walk 30+ minutes daily) Driving: May Drive Today Showering/Bathing: May Shower Notify Provider of: Fever, Increased Pain, Nausea and/or Vomiting - Discharge Plan Prescriptions/Med Rec: RX: Docusate Sodium/Sennosides [Senna Plus] 1 tab PO BID PRN #30 tablet PRN Reason: Constipation Ondansetron [Zofran ODT] 4 mg PO Q6H #30 tab.dis RX: Rosuvastatin [Crestor] 10 mg PO DAILY #30 tablet Home Medications: Home Meds RX: Albuterol [Proair HFA] 2 puff INH QID PRN 08/12/14 [History] RX: Montelukast [Singulair] 10 mg PO DAILY 08/12/14 [History] RX: Omeprazole Magnesium [Prilosec Otc] 20 mg PO DAILY 08/12/14 [History] RX: Pregabalin [Lyrica] 300 mg PO BID 08/12/14 [History] RX: Propranolol [Inderal] 1 tab PO BID 08/12/14 [History] RX: Ranitidine [Zantac] 1 tab PO BID 08/12/14 [History] RX: SUMAtriptan [Imitrex] 1 tab PO ASDIRECTED PRN 08/12/14 [History] RX: Budesonide/Formoterol [Symbicort 160-4.5 MCG] 2 puff INH BID 03/21/15 [ History] RX: QUEtiapine [SEROquel] 25 mg PO BID 03/21/15 [History] RX: QUEtiapine [SEROquel] 50 mg PO BEDTIME 03/21/15 [History] RX: tiZANidine [Zanaflex] 8 mg PO BEDTIME 04/11/16 [History] RX: Docusate Sodium [Colace] 100 mg PO BID #60 cap 04/15/16 [Rx] RX: Magnesium Citrate 100 mg PO BEDTIME #60 tablet 04/15/16 [Rx] RX: DULoxetine [Cymbalta] 60 mg PO DAILY 09/10/16 [History] RX: Orphenadrine [Norflex] 100 mg PO BID PRN #14 tab.er 09/10/16 [Rx] RX: buPROPion [Wellbutrin XL] 150 mg PO DAILY 09/10/16 [History] RX: Hydrocodone/Acetaminophen [Hydrocodon-Acetaminophen 5-325] 1 each PO Q6HR PRN #30 tablet 02/11/17 [Rx] Ondansetron [Zofran ODT] 4 mg PO Q6H #30 tab.dis 03/16/17 [Rx] RX: Docusate Sodium/Sennosides [Senna Plus] 1 tab PO BID PRN #30 tablet [Rx] RX: Rosuvastatin [Crestor] 10 mg PO DAILY #30 tablet 03/16/17 [Rx] Patient Handouts: Smoking Cessation, Tips for Success, Iqgu-[id number], Smoking Hazards, Adhesions, [id number], Acute Pancreatitis, Iqcr-at-Ahzx, Small Bowel Obstruction, [id number] Forms: ED Department Discharge Referrals: PCP,Not In Area [Primary Care Provider] - - Discharge Summary/Plan Comment DC Time >30 min.: Yes (40 min) - General Info Date of Service: 03/16/17 Admission Dx/Problem (Free Text: Small Bowel Obstruction 2/2 Adhesions and Acute Pancreatitis Patient seen this morning; sitting up at bedside, feeling much better. Abdominal pain is much improved, nausea resolved, had BM last night. Tolerating clear liquids without problems. NG was dc'd last evening, tolerating well. VSS, afebrile. She is hungry this morning. Slept well overnight, no other new complaints or concerns this morning. Functional Status: Reports: pain controlled, tolerating diet, ambulating, urinating. Denies: new symptoms - Review of Systems General: Reports: No Symptoms HEENT: Reports: no symptoms Pulmonary: Reports: no symptoms Cardiovascular: Reports: No Symptoms Gastrointestinal: Reports: No symptoms Genitourinary: Reports: no symptoms Musculoskeletal: Reports: no symptoms Skin: Reports: no symptoms Neurological: Reports: No Symptoms Psychiatric: Reports: no symptoms - Patient Data Vitals - Most Recent: Last Vital Signs Temp 98.2 F 03/16/17 07:53 Pulse 72 03/16/17 09:51 Resp 16 03/16/17 07:53 BP 117/66 03/16/17 09:51 Pulse Ox 97 03/16/17 08:53 Weight - Most Recent: 291 lb 8 oz I&O - Last 24 hours: Intake & Output 03/15/17 03/16/17 03/16/17 22:59 06:59 14:59 Intake Total 3060 2225 Output Total 2800 1000 Balance 260 1225 Lab Results - Last 24 hrs: Laboratory Results - last 24 hr 03/16/17 03/16/17 Range/Units 05:40 06:15 WBC 6.48 (3.98-10.04) K/mm3 RBC 3.90 L (3.98-5.22) M/mm3 Hgb 11.4 (11.2-15.7) gm/L Hct 35.2 (34.1-44.9) % MCV 90.3 (79.4-94.8) fl MCH 29.2 (25.6-32.2) pg MCHC 32.4 (32.2-35.5) g/dl RDW Std Deviation 41.9 (36.4-46.3) fL Plt Count 313 (182-369) K/mm3 MPV 10.6 (9.4-12.3) fl Neut % (Auto) 57.7 (34.0-71.1) % Lymph % (Auto) 30.1 (19.3-51.7) % [place] % (Auto) 10.2 (4.7-12.5) % Eos % (Auto) 1.5 (0.7-5.8) Baso % (Auto) 0.3 (0.1-1.2) % Neut # (Auto) 3.74 (1.56-6.13) K/mm3 Lymph # (Auto) 1.95 (1.18-3.74) K/mm3 [place] # (Auto) 0.66 H (0.24-0.36) K/mm3 Eos # (Auto) 0.10 (0.04-0.36) K/mm3 Baso # (Auto) 0.02 (0.01-0.08) K/mm3 Sodium 146 H (136-145) mEq/L Potassium 3.2 L (3.5-5.1) mEq/L Chloride 112 H (98-107) mEq/L Carbon Dioxide 24 (21-32) mEq/L Anion Gap 13.2 (5-15) BUN 3 L (7-18) mg/dL Creatinine 0.6 (0.55-1.02) mg/dL Est Cr Clr Drug Dosing 130.76 mL/min Estimated GFR (MDRD) > 60 (>60) mL/min BUN/Creatinine Ratio 5.0 L (14-18) Glucose 94 (74-106) mg/dL Calcium 7.9 L (8.5-10.1) mg/dL Magnesium 2.0 (1.8-2.4) mg/dl C-Reactive Protein < 0.2 (<1.0) mg/dL Med Orders - Current: Current Medications Acetaminophen (Tylenol) 650 mg PO Q4H PRN PRN Reason: Pain (Mild 1-3)/fever Hydrocodone Bitart/Acetaminophen ([place] 325-5 Mg) 1 tab PO Q4H PRN PRN Reason: Pain (moderate 4-6) Last Admin: 03/15/17 09:07 Dose: 1 tab Albuterol/Ipratropium (Duoneb 3.0-0.5 Mg/3 Ml) 3 ml NEB Q4H PRN PRN Reason: Shortness Of Breath/wheezing Bisacodyl (Dulcolax) 5 mg PO DAILY PRN PRN Reason: Constipation Bupropion HCl (Wellbutrin Xl) 150 mg PO DAILY [facility] [place] Last Admin: 03/16/17 09:51 Dose: 150 mg Duloxetine HCl (Cymbalta) 60 mg PO DAILY [facility] [place] Last Admin: 03/16/17 09:50 Dose: 60 mg Enoxaparin Sodium (Lovenox) 40 mg SUBCUT Q12HR [facility] [place] Last Admin: 03/16/17 09:49 Dose: 40 mg Famotidine (Pepcid) 20 mg IVPUSH BID [facility] [place] Last Admin: 03/16/17 09:50 Dose: 20 mg Hydralazine HCl (Apresoline) 20 mg IVPUSH Q4H PRN PRN Reason: Hypertension Hydromorphone HCl (Dilaudid) 1 mg IVPUSH Q4H PRN PRN Reason: Pain (severe 7-10) Last Admin: 03/14/17 20:58 Dose: 1 mg Dextrose/Sodium Chloride (Dextrose 5%-1/2 Ns) 1,000 mls @ 125 mls/hr IV ASDIRECTED [facility] [place] Last Admin: 03/16/17 00:08 Dose: 125 mls/hr Azithromycin 250 mg/ Sodium (Chloride) 250 mls @ 250 mls/hr IV Q24H [facility] [place] Last Admin: 03/15/17 21:38 Dose: 250 mls/hr Lorazepam (Ativan) 1 mg IV Q6H PRN PRN Reason: Anxiety Magnesium Oxide (Magnesium Oxide) 400 mg PO BEDTIME [facility] [place] Last Admin: 03/15/17 21:39 Dose: 400 mg Magnesium Sulfate (Pharmacy To Dose - Magnesium Replacement) 0 dose .XX ASDIRECTED PRN PRN Reason: rx dose Metoclopramide HCl (Reglan) 10 mg IVPUSH Q6H [facility] [place] Last Admin: 03/16/17 09:50 Dose: 10 mg Metoprolol Tartrate (Lopressor) 5 mg IVPUSH Q4H PRN PRN Reason: Tachycardia Mometasone Furoate/Formoterol Fumar (Dulera 200-5 Mcg) 2 puff IH BID [facility] [place] Last Admin: 03/16/17 08:53 Dose: 2 puff Montelukast Sodium (Singulair) 10 mg PO DAILY [facility] [place] Last Admin: 03/16/17 09:54 Dose: 10 mg Ondansetron HCl (Zofran) 4 mg IVPUSH Q8H PRN PRN Reason: Nausea Polyethylene Glycol (Miralax) 17 gm PO DAILY PRN PRN Reason: Constipation Potassium Chloride (Pharmacy To Dose - Potassium Replacement) 0 dose .XX ASDIRECTED PRN PRN Reason: rx dose Potassium Chloride (Potassium Chloride Solution) 20 meq PO Q3H [facility] [place] Stop: 03/16/17 12:01 Last Admin: 03/16/17 09:49 Dose: 20 meq Pregabalin (Lyrica) 225 mg PO BID [facility] [place] Last Admin: 03/16/17 09:50 Dose: 225 mg Propranolol HCl (Inderal) 10 mg PO BID [facility] [place] Last Admin: 03/16/17 09:51 Dose: 10 mg Quetiapine Fumarate (Seroquel) 50 mg PO BEDTIME [facility] [place] Last Admin: 03/15/17 21:42 Dose: 50 mg Quetiapine Fumarate (Seroquel) 25 mg PO BID@0900,1800 [facility] [place] Last Admin: 03/16/17 09:50 Dose: 25 mg Rosuvastatin Calcium (Crestor) 10 mg PO DAILY [facility] [place] Senna/Docusate Sodium (Senna Plus) 1 tab PO BID PRN PRN Reason: Constipation Sodium Chloride (Saline Flush) 10 ml FLUSH ASDIRECTED PRN PRN Reason: Keep Vein Open Sumatriptan Succinate (Imitrex) 50 mg PO ASDIRECTED PRN PRN Reason: Pain Temazepam (Restoril) 30 mg PO BEDTIME PRN PRN Reason: Sleep Discontinued Medications Diatrizoate Meglum/Diatrizoate Sod (Gastrografin 37%) 90 ml PO ONETIME ONE Stop: 03/13/17 19:19 Last Admin: 03/14/17 00:07 Dose: Not Given Diphenhydramine HCl (Benadryl) 25 mg IVPUSH ONETIME ONE Stop: 03/13/17 22:07 Last Admin: 03/13/17 22:34 Dose: 25 mg Hydromorphone HCl (Dilaudid) 1 mg IVPUSH ONETIME ONE Stop: 03/13/17 17:53 Last Admin: 03/13/17 18:03 Dose: 1 mg Hydromorphone HCl (Dilaudid) 1 mg IVPUSH ONETIME ONE Stop: 03/13/17 19:21 Last Admin: 03/13/17 19:26 Dose: 1 mg Sodium Chloride (Normal Saline) 1,000 mls @ 1,000 mls/hr IV .BOLUS STA Stop: 03/13/17 18:49 Last Admin: 03/13/17 18:02 Dose: 1,000 mls/hr Erythromycin Lactobionate 250 (mg/ Sodium Chloride) 100 mls @ 100 mls/hr IV Q6H RUBEN Stop: 03/14/17 20:00 Last Admin: 03/14/17 16:29 Dose: 100 mls/hr Influenza Virus Vaccine (Fluzone/Fluarix Vaccine) 60 mcg IM .ONCE ONE Stop: 03/14/17 01:48 Iopamidol (Isovue-300 (61%)) 150 ml IVPUSH ONETIME ONE Stop: 03/13/17 19:19 Last Admin: 03/13/17 19:40 Dose: 150 ml Mometasone Furoate/Formoterol Fumar (Dulera 200-5 Mcg) 0 puff IH BIDRT [facility] [place] (Magnesium Citrate [ Magnesium Citrate] 100 Mg) Own Med * 100 mg PO BEDTIME RUBEN Ondansetron HCl (Zofran) 4 mg IVPUSH ONETIME ONE Stop: 03/13/17 17:51 Last Admin: 03/13/17 18:02 Dose: 4 mg Ondansetron HCl (Zofran) 4 mg IVPUSH ONETIME ONE Stop: 03/13/17 20:35 Last Admin: 03/13/17 20:40 Dose: 4 mg Quetiapine Fumarate (Seroquel) 25 mg PO BID [facility] [place] Last Admin: 03/14/17 08:27 Dose: 25 mg Scopolamine (Transderm-Scop) 1.5 mg TOP ONETIME ONE Stop: 03/13/17 22:05 Last Admin: 03/13/17 22:40 Dose: 1.5 mg Sodium Chloride (Saline Flush) 10 ml FLUSH ASDIRECTED PRN PRN Reason: Keep Vein Open Last Admin: 03/13/17 18:02 Dose: 10 ml Sodium Chloride (Saline Flush) 10 ml FLUSH ONETIME ONE Stop: 03/13/17 19:19 Last Admin: 03/13/17 19:40 Dose: 10 ml - Exam Quality Assessment: Reports: DVT prophylaxis General: Reports: alert, oriented, cooperative, no acute distress HEENT: Reports: Pupils equal, Pupils reactive, EOMI, Mucous membr. moist/pink Neck: Reports: supple Lungs: Reports: Clear to auscultation, Normal respiratory effort Cardiovascular: Reports: Regular Rate, Regular Rhythm Abdomen: Reports: bowel sounds present, soft, no tenderness, no distension (Female) Exam: Deferred Rectal (Female) Exam: Deferred Back Exam: Reports: normal inspection Extremities: Reports: no edema Skin: Reports: warm, dry Neurological: Reports: no new focal deficit Psy/Mental Status: Reports: alert, normal affect, normal mood *Q Meaningful Use (DIS) - VTE *Q VTE Criteria *Q: - Stroke *Q Stroke Criteria *Q: - AMI *Q AMI Criteria *Q:
== END 2017-03-16 13:09 | disposition home or self-care (01) | DRG 282 ==
LOC: JD.ED 17:27 → JD.MS 20:26
PROVIDERS: ADMIT Internal Medicine; ATTEND Internal Medicine
DX: K85.90 Acute pancreatitis without necrosis or infection, unspecified (principal); K56.5 Intestinal adhesions [bands] with obstruction (postinfection); J44.9 Chronic obstructive pulmonary disease, unspecified; J45.909 Unspecified asthma, uncomplicated; M19.90 Unspecified osteoarthritis, unspecified site; M54.9 Dorsalgia, unspecified; G89.29 Other chronic pain; F32.9 Major depressive disorder, single episode, unspecified; F41.9 Anxiety disorder, unspecified; E66.9 Obesity, unspecified; Z68.30 Body mass index [BMI] 30.0-30.9, adult; Z90.49 Acquired absence of other specified parts of digestive tract; F17.200 Nicotine dependence, unspecified, uncomplicated; E66.01 Morbid (severe) obesity due to excess calories; Z98.84 Bariatric surgery status; Z91.040 Latex allergy status; Z91.09 Other allergy status, other than to drugs and biological substances; Z79.899 Other long term (current) drug therapy; G43.909 Migraine, unspecified, not intractable, without status migrainosus; M41.9 Scoliosis, unspecified
CPT/HCPCS: 36415; 74020; 74020-26; 74177; 74177-26; 80048; 80053; 80061; 81001; 83036; 83605; 83615; 83690; 83735; 84703; 85025; 86140; 87040; 94640; 94664; 94760; 94761; 96361; 96374; 96375; 96376; 97161-GP; 97165-GO; 99284; 99285-25; A9270-GY; G0480; J0456; J1170; J1200; J1364; J1650; J2405; J2765; J7030; J7040; J7042; J7050; Q9963; Q9967

== ENCOUNTER 2021-03-30 01:41 | Emergency (ER) | payer BC, MEDICAID, OTHER ==
[2021-03-30 02:05] VITALS: BP 110/82; PULSE 84
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
== END 2021-03-30 05:16 | disposition home or self-care (01) ==
LOC: JD.ED 01:41
DX: R52 Pain, unspecified (principal); J44.9 Chronic obstructive pulmonary disease, unspecified; F10.20 Alcohol dependence, uncomplicated; M41.9 Scoliosis, unspecified; E66.9 Obesity, unspecified; Z79.899 Other long term (current) drug therapy; Z68.27 Body mass index [BMI] 27.0-27.9, adult; Z91.048 Other nonmedicinal substance allergy status; Z91.040 Latex allergy status; Z72.0 Tobacco use
CPT/HCPCS: 99282; 99283

== ENCOUNTER 2023-09-18 18:00 | Emergency (ER) | payer MEDICAID ==
[2023-09-18] MEDS ORDERED: Sodium Chloride 0.9% 1,000 ML IV STA (18:30)
[2023-09-18] MEDS ORDERED: Sodium Chloride 0.9% 10 ML Syringe FLUSH PRN (18:30)
[2023-09-18 18:38] LABS: BASOPHILS ABSOLUTE AUTO 0.1 K/mm3 (0.0-0.2); BASOPHILS PERCENT AUTO 1.1 % (0.0-1.0); EOSINOPHILS ABSOLUTE AUTO 0.1 K/mm3 (0.0-0.4); EOSINOPHILS PERCENT AUTO 0.9 % (0.0-6.0); HEMATOCRIT 33.4 % (37.0-47.0); HEMOGLOBIN 10.7 gm/dl (12.0-16.0); IMMATURE GRAN ABSOLUTE AUTO 0.02 K/mm3 (0.00-0.05); IMMATURE GRAN PERCENT AUTO 0.3 % (0.0-0.4); LYMPHOCYTES ABSOLUTE AUTO 3.4 K/mm3 (1.0-4.8); LYMPHOCYTES PERCENT AUTO 43.5 % (24.0-44.0); MEAN CORPUSCULAR HEMOGLOBIN 26.2 pg (28.0-32.0); MEAN CORPUSCULAR VOLUME 81.9 fl (83.0-99.0); MEAN PLATELET VOLUME 8.5 fl (9.4-12.3); MONOCYTES ABSOLUTE AUTO 0.9 K/mm3 (0.0-0.8); NEUTROPHILS ABSOLUTE AUTO 3.4 K/mm3 (1.8-7.7); NEUTROPHILS PERCENT AUTO 43.2 % (41.0-71.0); PLATELET COUNT,PLT 509 K/mm3 (150-400); RED BLOOD CELL COUNT 4.08 M/mm3 (4.10-5.30); WHITE BLOOD CELL COUNT,WBC 7.89 K/mm3 (3.9-11.3)
[2023-09-18 18:50] LABS: A/G RATIO 0.2 (1-2); ALBUMIN 0.8 g/dl (3.4-5.0); ANION GAP 10.1 (5-15); BILIRUBIN TOTAL 0.2 mg/dL (0.2-1.0); BUN/CREATININE RATIO 13.8 (14-18); C-REACTIVE PROTEIN 0.4 mg/dL (<1.0); CALCIUM 6.7 mg/dL (8.5-10.1); CREATININE 0.8 mg/dL (0.55-1.02); EST CRCL DRUG DOSING (CG) 91.47 mL/min; ETHANOL BLOOD MEDICAL 0.04 gm% (0.00); POTASSIUM,K 3.1 mEq/L (3.5-5.1); PROTEIN TOTAL,TP 4.9 g/dl (6.4-8.2)
[2023-09-18 19:09] LABS: LACTIC ACID 1.4 mmol/L (0.4-2.0)
[2023-09-18 19:15] LABS: CORONAVIRUS COVID-19 NAA NEGATIVE (NEGATIVE); INFLUENZA A NAA NEGATIVE (NEGATIVE); RESPIRATORY SYNCYTIAL VIR NAA NEGATIVE (NEGATIVE)
[2023-09-18] MEDS ORDERED: Iopamidol 755 Mg/ML 100 ML Bottle IVPUSH ONE (19:31)
[2023-09-18] MEDS ORDERED: Sodium Chloride 0.9% 10 ML SDV FLUSH ONE (19:31)
[2023-09-18] MEDS ORDERED: Sodium Chloride 0.9% 100 ML IV SCH (19:45)
[2023-09-18] MEDS ORDERED: Ondansetron 4 MG/2 ML SDV IVPUSH ONE (20:01)
[2023-09-18] MEDS ORDERED: Magnesium Sulfate/Water 2 GM in Premix Bag 1 BAG IV ONE (20:01)
[2023-09-18] MEDS ORDERED: Potassium Chloride 20 MEQ Tab.ER PO ONE (20:01)
[2023-09-18] MEDS ORDERED: cefTRIAXone 2 GM in Sodium Chloride 0.9% 100 ML IV ONE (21:23)
[2023-09-18 21:46] LABS: APPEARANCE,URINE CLOUDY (Clear); BILIRUBIN,URINE NEGATIVE (Negative); COLOR,URINE YELLOW (Yellow); GLUCOSE,URINE NEGATIVE (Negative); KETONES,URINE NEGATIVE (Negative); LEUKOCYTE ESTERASE,URINE 1+ (Negative); NITRITE,URINE POSITIVE (Negative); OCCULT BLOOD,URINE TRACE-INTACT (Negative); PROTEIN,URINE TRACE (Negative)
[2023-09-18 21:54] LABS: BACTERIA,URINE MANY /hpf (FEW); SQUAMOUS EPITHELIAL CELLS,UR 0-5 /hpf (0-5); WBC,URINE TOO NUMEROUS TO CNT /hpf (0-5)
[2023-09-18 21:55] LABS: MUCUS,URINE FEW /hpf (FEW)
[2023-09-18 23:01] VITALS: BP 120/68; PULSE 85
== END 2023-09-18 22:50 | disposition home or self-care (01) ==
LOC: JD.ED 18:00
DX: J18.9 Pneumonia, unspecified organism (principal); E87.6 Hypokalemia; E83.42 Hypomagnesemia; N39.0 Urinary tract infection, site not specified; I25.10 Atherosclerotic heart disease of native coronary artery without angina pectoris; I50.9 Heart failure, unspecified; J44.9 Chronic obstructive pulmonary disease, unspecified; E66.9 Obesity, unspecified; Z79.899 Other long term (current) drug therapy; Z91.040 Latex allergy status; Z91.048 Other nonmedicinal substance allergy status; Z68.33 Body mass index [BMI] 33.0-33.9, adult; Z87.891 Personal history of nicotine dependence
CPT/HCPCS: 0241U; 36415; 71046; 71275; 80053; 80307; 81001; 83605; 83690; 83735; 83880; 84484; 85025; 85379; 86140; 87086; 87088; 87186; 93005; 93970; 96361; 96365; 96366; 96367; 96375; 99285; A9270; J0696; J2405; J3475; J3490; J7030; Q9967

== ENCOUNTER 2023-10-01 14:34 | Observation (INO) | payer MEDICAID ==
[2023-10-01] MEDS ORDERED: Sodium Chloride 0.9% 10 ML Syringe FLUSH PRN (15:13)
[2023-10-01] MEDS ORDERED: Lactated Ringers 1,000 ML IV SCH (15:15)
[2023-10-01 15:22] LABS: BASOPHILS ABSOLUTE AUTO 0.1 K/mm3 (0.0-0.2); BASOPHILS PERCENT AUTO 0.5 % (0.0-1.0); EOSINOPHILS ABSOLUTE AUTO 0.2 K/mm3 (0.0-0.4); EOSINOPHILS PERCENT AUTO 1.7 % (0.0-6.0); HEMATOCRIT 33.4 % (37.0-47.0); HEMOGLOBIN 10.7 gm/dl (12.0-16.0); IMMATURE GRAN ABSOLUTE AUTO 0.03 K/mm3 (0.00-0.05); IMMATURE GRAN PERCENT AUTO 0.3 % (0.0-0.4); LYMPHOCYTES ABSOLUTE AUTO 2.9 K/mm3 (1.0-4.8); LYMPHOCYTES PERCENT AUTO 29.8 % (24.0-44.0); MEAN CORPUSCULAR HEMOGLOBIN 26.6 pg (28.0-32.0); MEAN CORPUSCULAR VOLUME 82.9 fl (83.0-99.0); MEAN PLATELET VOLUME 8.4 fl (9.4-12.3); MONOCYTES ABSOLUTE AUTO 0.9 K/mm3 (0.0-0.8); MONOCYTES PERCENT AUTO 8.9 % (0.0-8.0); NEUTROPHILS ABSOLUTE AUTO 5.8 K/mm3 (1.8-7.7); NEUTROPHILS PERCENT AUTO 58.8 % (41.0-71.0); PLATELET COUNT,PLT 537 K/mm3 (150-400); RED BLOOD CELL COUNT 4.03 M/mm3 (4.10-5.30); WHITE BLOOD CELL COUNT,WBC 9.81 K/mm3 (3.9-11.3)
[2023-10-01] MEDS ORDERED: Iopamidol 612 MG/ML 100 ML Bottle IVPUSH ONE (15:41)
[2023-10-01] MEDS ORDERED: Sodium Chloride 0.9% 10 ML Syringe FLUSH ONE (15:41)
[2023-10-01 15:49] LABS: A/G RATIO 0.3 (1-2); ALBUMIN 1.2 g/dl (3.4-5.0); ANION GAP 11.7 (5-15); BILIRUBIN TOTAL 0.4 mg/dL (0.2-1.0); C-REACTIVE PROTEIN 3.5 mg/dL (<1.0); CALCIUM 7.8 mg/dL (8.5-10.1); CREATININE 1.1 mg/dL (0.55-1.02); EST CRCL DRUG DOSING (CG) 66.52 mL/min; POTASSIUM,K 3.7 mEq/L (3.5-5.1); PROTEIN TOTAL,TP 5.9 g/dl (6.4-8.2)
[2023-10-01 16:30] LABS: CORONAVIRUS COVID-19 NAA NEGATIVE (NEGATIVE); INFLUENZA A NAA NEGATIVE (NEGATIVE)
[2023-10-01] MEDS ORDERED: Morphine 2 MG/ML SYRINGE IVPUSH ONE ×2 (17:14→19:57)
[2023-10-01] MEDS ORDERED: Naloxone 0.4 MG/ML SDV IVPUSH PRN (17:14)
[2023-10-01] MEDS ORDERED: Benzocaine 20% Topical Spray UD MUCMEM ONE (17:24)
[2023-10-01 17:58] LABS: APPEARANCE,URINE CLEAR (Clear); BILIRUBIN,URINE 1+ (Negative); COLOR,URINE AMBER (Yellow); GLUCOSE,URINE NEGATIVE (Negative); KETONES,URINE 1+ (Negative); LEUKOCYTE ESTERASE,URINE NEGATIVE (Negative); NITRITE,URINE NEGATIVE (Negative); OCCULT BLOOD,URINE NEGATIVE (Negative); PH,URINE 6.5 (5.0-8.0); PROTEIN,URINE 1+ (Negative)
[2023-10-01 18:13] LABS: BARBITURATE SCREEN,URINE NEGATIVE (CUTOFF=200); BENZODIAZEPINES SCREEN,URINE NEGATIVE (CUTOFF=150); BUPRENORPHINE SCREEN,URINE NEGATIVE (CUTOFF=10); METHADONE SCREEN, URINE NEGATIVE (CUTOFF=200); METHAMPHETAMINES SCREEN, URINE PRESUMPTIVE POSITIVE (CUTOFF=500); OXYCODONE SCREEN,URINE PRESUMPTIVE POSITIVE (CUT0FF=100); THC SCREEN,URINE 20 NG/ML NEGATIVE (CUTOFF=50)
[2023-10-01 18:14] LABS: AMPHETAMINES SCREEN, URINE PRESUMPTIVE POSITIVE (CUTOFF=500)
[2023-10-01 18:22] LABS: RBC,URINE 0-5 /hpf (0-5); WBC,URINE 0-5 /hpf (0-5)
[2023-10-01 18:23] LABS: BACTERIA,URINE FEW /hpf (FEW); HYALINE CASTS,URINE 0-5 /lpf (0-5); MUCUS,URINE FEW /hpf (FEW)
[2023-10-01] MEDS ORDERED: Ondansetron 4 MG/2 ML SDV IVPUSH PRN (18:32)
[2023-10-01] MEDS: Prazosin 1 MG Cap PO SCH ×2 (20:57→21:26)
[2023-10-01] MEDS: Lactated Ringers 1,000 ML IV SCH (20:57)
[2023-10-01] MEDS: tiZANidine 4 MG Tab PO SCH ×2 (20:57→21:26)
[2023-10-01] MEDS ORDERED: Pregabalin 25 MG Cap PO SCH (21:00)
[2023-10-01] MEDS ORDERED: Morphine 2 MG/ML SYRINGE IVPUSH PRN (21:20)
[2023-10-01] MEDS: HYDROmorphone 0.5 MG/0.5 ML Syringe IVPUSH PRN (23:11)
[2023-10-01] MEDS: Pantoprazole 40 MG Vial IVPUSH SCH (23:56)
[2023-10-02] MEDS: HYDROmorphone 0.5 MG/0.5 ML Syringe IVPUSH PRN ×7 (03:11→20:51)
[2023-10-02 05:27] LABS: BASOPHILS ABSOLUTE AUTO 0.1 K/mm3 (0.0-0.2); BASOPHILS PERCENT AUTO 0.7 % (0.0-1.0); EOSINOPHILS ABSOLUTE AUTO 0.1 K/mm3 (0.0-0.4); EOSINOPHILS PERCENT AUTO 0.8 % (0.0-6.0); HEMATOCRIT 34.1 % (37.0-47.0); HEMOGLOBIN 10.8 gm/dl (12.0-16.0); IMMATURE GRAN ABSOLUTE AUTO 0.03 K/mm3 (0.00-0.05); IMMATURE GRAN PERCENT AUTO 0.2 % (0.0-0.4); LYMPHOCYTES PERCENT AUTO 24.8 % (24.0-44.0); MEAN CORPUSCULAR HEMOGLOBIN 26.6 pg (28.0-32.0); MEAN CORPUSCULAR HGB CONC 31.7 g/dl (32.0-36.0); MEAN PLATELET VOLUME 8.9 fl (9.4-12.3); MONOCYTES ABSOLUTE AUTO 1.3 K/mm3 (0.0-0.8); MONOCYTES PERCENT AUTO 10.6 % (0.0-8.0); NEUTROPHILS ABSOLUTE AUTO 7.7 K/mm3 (1.8-7.7); NEUTROPHILS PERCENT AUTO 62.9 % (41.0-71.0); PLATELET COUNT,PLT 595 K/mm3 (150-400); RED BLOOD CELL COUNT 4.06 M/mm3 (4.10-5.30); WHITE BLOOD CELL COUNT,WBC 12.22 K/mm3 (3.9-11.3)
[2023-10-02 05:47] LABS: A/G RATIO 0.2 (1-2); ANION GAP 11.6 (5-15); BILIRUBIN TOTAL 0.3 mg/dL (0.2-1.0); BUN/CREATININE RATIO 11.1 (14-18); CALCIUM 7.7 mg/dL (8.5-10.1); CREATININE 0.9 mg/dL (0.55-1.02); EST CRCL DRUG DOSING (CG) 81.3 mL/min; POTASSIUM,K 3.6 mEq/L (3.5-5.1); PROTEIN TOTAL,TP 5.6 g/dl (6.4-8.2)
[2023-10-02] MEDS ORDERED: FLU Vacc QS2022(65UP)/MF59C/PF 60 MCG/0.5 ML Syringe IM ONE (06:10)
[2023-10-02] MEDS: Lactated Ringers 1,000 ML IV SCH ×2 (07:20→14:51)
[2023-10-02] MEDS ORDERED: FLU (Flulaval Quad) 2023-24(6MOS UP)/PF 60 MCG/0.5 ML Syringe IM ONE (08:00)
[2023-10-02] MEDS ORDERED: HYDROmorphone 0.5 MG/0.5 ML Syringe IVPUSH PRN (08:41)
[2023-10-02] MEDS: Enoxaparin 40 MG/0.4 ML Syringe SUBCUT SCH (08:46)
[2023-10-02] MEDS: Potassium Chloride 10 MEQ in Premix Bag 1 BAG IV SCH ×2 (08:47→10:01)
[2023-10-02] MEDS: Pantoprazole 40 MG Vial IVPUSH SCH (08:47)
[2023-10-02] MEDS: Prazosin 1 MG Cap PO SCH (21:11)
[2023-10-02] MEDS: Dextrose 5%-0.45% NaCl 1,000 ML IV SCH (21:29)
[2023-10-03] MEDS: HYDROmorphone 0.5 MG/0.5 ML Syringe IVPUSH PRN ×4 (03:14→19:46)
[2023-10-03 06:01] LABS: BASOPHILS PERCENT AUTO 0.7 % (0.0-1.0); EOSINOPHILS ABSOLUTE AUTO 0.1 K/mm3 (0.0-0.4); EOSINOPHILS PERCENT AUTO 2.4 % (0.0-6.0); HEMATOCRIT 26.2 % (37.0-47.0); IMMATURE GRAN ABSOLUTE AUTO 0.01 K/mm3 (0.00-0.05); IMMATURE GRAN PERCENT AUTO 0.2 % (0.0-0.4); LYMPHOCYTES ABSOLUTE AUTO 1.9 K/mm3 (1.0-4.8); LYMPHOCYTES PERCENT AUTO 35.4 % (24.0-44.0); MEAN CORPUSCULAR HEMOGLOBIN 26.1 pg (28.0-32.0); MEAN CORPUSCULAR HGB CONC 31.7 g/dl (32.0-36.0); MEAN CORPUSCULAR VOLUME 82.4 fl (83.0-99.0); MEAN PLATELET VOLUME 9.2 fl (9.4-12.3); MONOCYTES ABSOLUTE AUTO 0.7 K/mm3 (0.0-0.8); MONOCYTES PERCENT AUTO 11.9 % (0.0-8.0); NEUTROPHILS ABSOLUTE AUTO 2.7 K/mm3 (1.8-7.7); NEUTROPHILS PERCENT AUTO 49.4 % (41.0-71.0); RED BLOOD CELL COUNT 3.18 M/mm3 (4.10-5.30); WHITE BLOOD CELL COUNT,WBC 5.48 K/mm3 (3.9-11.3)
[2023-10-03 06:03] LABS: HEMOGLOBIN 8.3 gm/dl (12.0-16.0); PLATELET COUNT,PLT 498 K/mm3 (150-400)
[2023-10-03 06:17] LABS: A/G RATIO 0.2 (1-2); ALBUMIN 0.8 g/dl (3.4-5.0); ANION GAP 8.1 (5-15); BILIRUBIN TOTAL 0.3 mg/dL (0.2-1.0); BUN/CREATININE RATIO 13.3 (14-18); CREATININE 0.6 mg/dL (0.55-1.02); EST CRCL DRUG DOSING (CG) 121.96 mL/min; POTASSIUM,K 3.1 mEq/L (3.5-5.1); PROTEIN TOTAL,TP 4.4 g/dl (6.4-8.2)
[2023-10-03] MEDS ORDERED: Benzocaine/Cetylpyridinium/Menthol Lozenge MUCMEM PRN (07:27)
[2023-10-03] MEDS: Pantoprazole 40 MG Vial IVPUSH SCH (09:00)
[2023-10-03] MEDS: Enoxaparin 40 MG/0.4 ML Syringe SUBCUT SCH (09:00)
[2023-10-03] MEDS: Dextrose 5%-0.45% NaCl 1,000 ML IV SCH ×2 (09:14→19:43)
[2023-10-03] MEDS: Acetaminophen/HYDROcodone 325-5 MG Tab PO PRN (19:45)
[2023-10-04] MEDS: Prazosin 1 MG Cap PO SCH ×2 (01:54→20:38)
[2023-10-04] MEDS: Acetaminophen/HYDROcodone 325-5 MG Tab PO PRN ×3 (01:59→20:39)
[2023-10-04 06:34] LABS: BASOPHILS PERCENT AUTO 0.9 % (0.0-1.0); EOSINOPHILS ABSOLUTE AUTO 0.1 K/mm3 (0.0-0.4); EOSINOPHILS PERCENT AUTO 3.1 % (0.0-6.0); HEMATOCRIT 26.4 % (37.0-47.0); HEMOGLOBIN 8.3 gm/dl (12.0-16.0); IMMATURE GRAN ABSOLUTE AUTO 0.01 K/mm3 (0.00-0.05); IMMATURE GRAN PERCENT AUTO 0.2 % (0.0-0.4); LYMPHOCYTES ABSOLUTE AUTO 2.8 K/mm3 (1.0-4.8); LYMPHOCYTES PERCENT AUTO 60.4 % (24.0-44.0); MEAN CORPUSCULAR HEMOGLOBIN 25.6 pg (28.0-32.0); MEAN CORPUSCULAR HGB CONC 31.4 g/dl (32.0-36.0); MEAN CORPUSCULAR VOLUME 81.5 fl (83.0-99.0); MEAN PLATELET VOLUME 9.1 fl (9.4-12.3); MONOCYTES ABSOLUTE AUTO 0.4 K/mm3 (0.0-0.8); MONOCYTES PERCENT AUTO 8.1 % (0.0-8.0); NEUTROPHILS ABSOLUTE AUTO 1.2 K/mm3 (1.8-7.7); NEUTROPHILS PERCENT AUTO 27.3 % (41.0-71.0); PLATELET COUNT,PLT 498 K/mm3 (150-400); RED BLOOD CELL COUNT 3.24 M/mm3 (4.10-5.30); WHITE BLOOD CELL COUNT,WBC 4.55 K/mm3 (3.9-11.3)
[2023-10-04 06:57] LABS: A/G RATIO 0.2 (1-2); ALBUMIN 0.7 g/dl (3.4-5.0); BILIRUBIN TOTAL 0.2 mg/dL (0.2-1.0); BUN/CREATININE RATIO 6.7 (14-18); CALCIUM 6.9 mg/dL (8.5-10.1); CREATININE 0.6 mg/dL (0.55-1.02); EST CRCL DRUG DOSING (CG) 121.96 mL/min; PROTEIN TOTAL,TP 4.5 g/dl (6.4-8.2)
[2023-10-04] MEDS: Pantoprazole 40 MG Vial IVPUSH SCH (08:01)
[2023-10-04] MEDS: Enoxaparin 40 MG/0.4 ML Syringe SUBCUT SCH (08:01)
[2023-10-04] MEDS ORDERED: Calcium Gluconate 10% 1 GM/10 ML SDV IVPUSH ONE (12:30)
[2023-10-04] MEDS: Potassium Chloride 10 MEQ in Premix Bag 1 BAG IV SCH ×4 (13:08→16:45)
[2023-10-04] MEDS: Dextrose 5%-0.45% NaCl 1,000 ML IV SCH (18:04)
[2023-10-05] MEDS: Acetaminophen/HYDROcodone 325-5 MG Tab PO PRN ×4 (02:26→22:00)
[2023-10-05] MEDS: Dextrose 5%-0.45% NaCl 1,000 ML IV SCH ×2 (05:32→19:22)
[2023-10-05 06:21] LABS: BASOPHILS ABSOLUTE AUTO 0.1 K/mm3 (0.0-0.2); BASOPHILS PERCENT AUTO 1.2 % (0.0-1.0); EOSINOPHILS ABSOLUTE AUTO 0.1 K/mm3 (0.0-0.4); EOSINOPHILS PERCENT AUTO 2.6 % (0.0-6.0); HEMATOCRIT 24.7 % (37.0-47.0); IMMATURE GRAN ABSOLUTE AUTO 0.01 K/mm3 (0.00-0.05); IMMATURE GRAN PERCENT AUTO 0.2 % (0.0-0.4); LYMPHOCYTES ABSOLUTE AUTO 2.9 K/mm3 (1.0-4.8); LYMPHOCYTES PERCENT AUTO 57.7 % (24.0-44.0); MEAN CORPUSCULAR HEMOGLOBIN 26.2 pg (28.0-32.0); MEAN CORPUSCULAR HGB CONC 32.4 g/dl (32.0-36.0); MEAN PLATELET VOLUME 9.1 fl (9.4-12.3); MONOCYTES ABSOLUTE AUTO 0.4 K/mm3 (0.0-0.8); NEUTROPHILS ABSOLUTE AUTO 1.5 K/mm3 (1.8-7.7); NEUTROPHILS PERCENT AUTO 30.3 % (41.0-71.0); PLATELET COUNT,PLT 489 K/mm3 (150-400); RED BLOOD CELL COUNT 3.05 M/mm3 (4.10-5.30); WHITE BLOOD CELL COUNT,WBC 4.97 K/mm3 (3.9-11.3)
[2023-10-05 06:38] LABS: A/G RATIO 0.2 (1-2); ALBUMIN 0.7 g/dl (3.4-5.0); ANION GAP 9.7 (5-15); BILIRUBIN TOTAL 0.1 mg/dL (0.2-1.0); CALCIUM 6.9 mg/dL (8.5-10.1); EST CRCL DRUG DOSING (CG) 121.96 mL/min; POTASSIUM,K 2.7 mEq/L (3.5-5.1)
[2023-10-05 07:23] LABS: BUN/CREATININE RATIO 1.7 (14-18); CREATININE 0.6 mg/dL (0.55-1.02)
[2023-10-05] MEDS: Potassium Chloride 10 MEQ in Premix Bag 1 BAG IV SCH ×8 (10:06→20:20)
[2023-10-05] MEDS: Calcium Carbonate 500 MG Tab.Chew PO SCH ×6 (10:07→18:47)
[2023-10-05] MEDS: Pantoprazole 40 MG Vial IVPUSH SCH (10:08)
[2023-10-05] MEDS: Enoxaparin 40 MG/0.4 ML Syringe SUBCUT SCH (10:15)
[2023-10-05] MEDS: Prazosin 1 MG Cap PO SCH ×2 (19:26→22:14)
[2023-10-06] MEDS ORDERED: Acetaminophen 325 MG Tab PO PRN (06:08)
[2023-10-06 07:51] VITALS: PULSE 65
[2023-10-06] MEDS: Pantoprazole 40 MG Vial IVPUSH SCH (08:27)
[2023-10-06 09:04] LABS: ANION GAP 12.3 (5-15); CREATININE 0.8 mg/dL (0.55-1.02); EST CRCL DRUG DOSING (CG) 91.47 mL/min; POTASSIUM,K 3.3 mEq/L (3.5-5.1)
[2023-10-06 09:11] LABS: CALCIUM 7.3 mg/dL (8.5-10.1)
[2023-10-06] MEDS ORDERED: FLU (Flulaval Quad) 2023-24(6MOS UP)/PF 60 MCG/0.5 ML Syringe IM ONE (10:30)
[2023-10-06 12:12] VITALS: BP 97/58
== END 2023-10-06 12:25 | disposition home or self-care (01) ==
LOC: JD.ED 14:34 → JD.MS 18:26
PROVIDERS: ADMIT Surgery; ATTEND Surgery
DX: K56.600 Partial intestinal obstruction, unspecified as to cause (principal); J44.9 Chronic obstructive pulmonary disease, unspecified; I50.9 Heart failure, unspecified; I11.0 Hypertensive heart disease with heart failure; F32.A Depression, unspecified; F41.9 Anxiety disorder, unspecified; E66.9 Obesity, unspecified; F17.210 Nicotine dependence, cigarettes, uncomplicated; Z20.822 Contact with and (suspected) exposure to COVID-19; Z90.49 Acquired absence of other specified parts of digestive tract; Z98.51 Tubal ligation status; Z79.899 Other long term (current) drug therapy
CPT/HCPCS: 0240U; 36415; 71045; 71045-26; 74177; 74177-26; 80048; 80053; 80306; 80307; 81001; 82947; 85025; 86140; 87641; 90686; 96361; 96374; 96376; 99285; 99285-25; A9270-GY; C9113; G0008; J0612; J1170; J1650; J2270; J2405; J3480; J3490; J7042; J7120; Q9967

== ENCOUNTER 2024-04-11 13:47 | Emergency (ER) | payer MEDICAID ==
[2024-04-11 13:58] VITALS: BP 96/66; PULSE 89
[2024-04-11] MEDS: Ondansetron 4 MG/2 ML SDV IVPUSH ONE (14:26)
[2024-04-11] MEDS: HYDROmorphone 0.5 MG/0.5 ML Syringe IVPUSH ONE (14:26)
[2024-04-11] MEDS: Sodium Chloride 0.9% 10 ML Syringe FLUSH PRN ×2 (14:27→14:48)
[2024-04-11] MEDS: Iopamidol 612 MG/ML 100 ML Bottle IVPUSH ONE (14:39)
[2024-04-11 14:44] LABS: BASOPHILS ABSOLUTE AUTO 0.1 K/mm3 (0.0-0.2); BASOPHILS PERCENT AUTO 1.3 % (0.0-1.0); EOSINOPHILS ABSOLUTE AUTO 0.2 K/mm3 (0.0-0.4); EOSINOPHILS PERCENT AUTO 2.4 % (0.0-6.0); IMMATURE GRAN ABSOLUTE AUTO 0.01 K/mm3 (0.00-0.05); IMMATURE GRAN PERCENT AUTO 0.2 % (0.0-0.4); LYMPHOCYTES ABSOLUTE AUTO 2.7 K/mm3 (1.0-4.8); LYMPHOCYTES PERCENT AUTO 43.1 % (24.0-44.0); MEAN CORPUSCULAR HEMOGLOBIN 26.5 pg (28.0-32.0); MEAN CORPUSCULAR HGB CONC 31.3 g/dl (32.0-36.0); MEAN CORPUSCULAR VOLUME 84.7 fl (83.0-99.0); MEAN PLATELET VOLUME 8.9 fl (9.4-12.3); MONOCYTES ABSOLUTE AUTO 0.4 K/mm3 (0.0-0.8); MONOCYTES PERCENT AUTO 6.6 % (0.0-8.0); NEUTROPHILS PERCENT AUTO 46.4 % (41.0-71.0); PLATELET COUNT,PLT 453 K/mm3 (150-400); RED BLOOD CELL COUNT 3.78 M/mm3 (4.10-5.30); WHITE BLOOD CELL COUNT,WBC 6.36 K/mm3 (3.9-11.3)
[2024-04-11 15:18] LABS: A/G RATIO 0.3 (1-2); ALBUMIN 1.2 g/dl (3.4-5.0); ANION GAP 8.5 (5-15); BILIRUBIN TOTAL 0.2 mg/dL (0.2-1.0); BUN/CREATININE RATIO 7.5 (14-18); CALCIUM 6.9 mg/dL (8.5-10.1); CREATININE 0.8 mg/dL (0.55-1.02); EST CRCL DRUG DOSING (CG) 94.76 mL/min; ETHANOL BLOOD MEDICAL 0.17 gm% (0.00); POTASSIUM,K 3.5 mEq/L (3.5-5.1); PROTEIN TOTAL,TP 5.3 g/dl (6.4-8.2)
== END 2024-04-11 19:22 | disposition home or self-care (01) ==
LOC: JD.ED 13:47
DX: R10.12 Left upper quadrant pain (principal); R11.2 Nausea with vomiting, unspecified; F10.920 Alcohol use, unspecified with intoxication, uncomplicated; E66.9 Obesity, unspecified; F17.210 Nicotine dependence, cigarettes, uncomplicated; Z90.49 Acquired absence of other specified parts of digestive tract; Z79.899 Other long term (current) drug therapy; Z91.040 Latex allergy status; Z91.011 Allergy to milk products; Z91.048 Other nonmedicinal substance allergy status; Z68.27 Body mass index [BMI] 27.0-27.9, adult
CPT/HCPCS: 36415; 74177; 80053; 80307; 83690; 84703; 85025; 96374; 96375; 99284; J1170; J2405; J3490; Q9967

== ENCOUNTER 2024-06-05 19:18 | Emergency (ER) | payer MEDICAID ==
[2024-06-05 19:48] LABS: APPEARANCE,URINE SLT CLOUDY (Clear); BILIRUBIN,URINE NEGATIVE (Negative); COLOR,URINE DARK YELLOW (Yellow); GLUCOSE,URINE NEGATIVE (Negative); KETONES,URINE NEGATIVE (Negative); LEUKOCYTE ESTERASE,URINE TRACE (Negative); NITRITE,URINE POSITIVE (Negative); OCCULT BLOOD,URINE NEGATIVE (Negative); PH,URINE 6.5 (5.0-8.0); PROTEIN,URINE TRACE (Negative); UROBILINOGEN,URINE >=8.0 (0.2-1.0)
[2024-06-05] MEDS: Lactated Ringers 1,000 ML IV SCH (19:59)
[2024-06-05] MEDS ORDERED: Sodium Chloride 0.9% 1,000 ML IV SCH ×2 (20:00→22:30)
[2024-06-05 20:01] LABS: BACTERIA,URINE MANY /hpf (FEW); MUCUS,URINE RARE /hpf (FEW); RBC,URINE 0-5 /hpf (0-5); SQUAMOUS EPITHELIAL CELLS,UR 0-5 /hpf (0-5); WBC,URINE 0-5 /hpf (0-5)
[2024-06-05 20:15] LABS: BASOPHILS ABSOLUTE AUTO 0.1 K/mm3 (0.0-0.2); BASOPHILS PERCENT AUTO 1.1 % (0.0-1.0); EOSINOPHILS ABSOLUTE AUTO 0.1 K/mm3 (0.0-0.4); EOSINOPHILS PERCENT AUTO 1.1 % (0.0-6.0); HEMATOCRIT 30.4 % (37.0-47.0); HEMOGLOBIN 10.1 gm/dl (12.0-16.0); IMMATURE GRAN ABSOLUTE AUTO 0.01 K/mm3 (0.00-0.05); IMMATURE GRAN PERCENT AUTO 0.2 % (0.0-0.4); LYMPHOCYTES ABSOLUTE AUTO 2.5 K/mm3 (1.0-4.8); LYMPHOCYTES PERCENT AUTO 39.8 % (24.0-44.0); MEAN CORPUSCULAR HEMOGLOBIN 28.8 pg (28.0-32.0); MEAN CORPUSCULAR HGB CONC 33.2 g/dl (32.0-36.0); MEAN CORPUSCULAR VOLUME 86.6 fl (83.0-99.0); MEAN PLATELET VOLUME 9.3 fl (9.4-12.3); MONOCYTES ABSOLUTE AUTO 0.5 K/mm3 (0.0-0.8); NEUTROPHILS ABSOLUTE AUTO 3.1 K/mm3 (1.8-7.7); NEUTROPHILS PERCENT AUTO 49.8 % (41.0-71.0); PLATELET COUNT,PLT 305 K/mm3 (150-400); RED BLOOD CELL COUNT 3.51 M/mm3 (4.10-5.30); WHITE BLOOD CELL COUNT,WBC 6.28 K/mm3 (3.9-11.3)
[2024-06-05] MEDS: Iopamidol 612 MG/ML 100 ML Bottle IVPUSH ONE (20:36)
[2024-06-05] MEDS: Sodium Chloride 0.9% 10 ML Syringe FLUSH ONE (20:36)
[2024-06-05 20:41] LABS: LACTIC ACID 2.4 mmol/L (0.4-2.0)
[2024-06-05 20:46] LABS: A/G RATIO 0.3 (1-2); ALBUMIN 1.1 g/dl (3.4-5.0); ANION GAP 11.7 (5-15); BILIRUBIN TOTAL 0.7 mg/dL (0.2-1.0); BUN/CREATININE RATIO 7.1 (14-18); CALCIUM 6.8 mg/dL (8.5-10.1); CREATININE 0.7 mg/dL (0.55-1.02); EST CRCL DRUG DOSING (CG) 89.48 mL/min; POTASSIUM,K 2.7 mEq/L (3.5-5.1)
[2024-06-05 20:49] LABS: ETHANOL BLOOD MEDICAL 0.12 gm% (0.00)
[2024-06-05] MEDS: Sodium Chloride 0.9% 1,000 ML IV SCH (20:57)
[2024-06-05] MEDS: Potassium Chloride 10 MEQ in Premix Bag 1 BAG IV SCH (21:10)
[2024-06-05] MEDS: cefTRIAXone 2 GM in Sodium Chloride 0.9% 100 ML IV ONE (21:14)
[2024-06-05] MEDS: Potassium Chloride 20 MEQ Tab.ER PO ONE (21:25)
[2024-06-05] MEDS ORDERED: Acetaminophen 325 MG Tab PO ONE (22:40)
[2024-06-05] MEDS: Acetaminophen 325 MG Tab PO ONE (22:44)
[2024-06-05 22:55] VITALS: BP 110/65; PULSE 101
== END 2024-06-05 22:48 | disposition home or self-care (01) ==
LOC: JD.ED 19:18
DX: N39.0 Urinary tract infection, site not specified (principal); R10.32 Left lower quadrant pain; E87.6 Hypokalemia; F10.90 Alcohol use, unspecified, uncomplicated; J44.9 Chronic obstructive pulmonary disease, unspecified; I50.9 Heart failure, unspecified; E66.9 Obesity, unspecified; Z79.899 Other long term (current) drug therapy; Z91.040 Latex allergy status; Z91.011 Allergy to milk products; Z91.048 Other nonmedicinal substance allergy status
CPT/HCPCS: 36415; 74177; 80053; 80307; 81001; 81025; 83605; 83690; 85025; 87040; 87086; 87088; 87186; 96361; 96365; 96368; 99285; A9270; J0696; J3480; J3490; J7030; J7120; Q9967; 99284

== ENCOUNTER 2024-06-14 22:17 | Emergency (ER) | payer MEDICAID ==
[2024-06-14 22:49] LABS: BASOPHILS ABSOLUTE AUTO 0.1 K/mm3 (0.0-0.2); BASOPHILS PERCENT AUTO 1.4 % (0.0-1.0); EOSINOPHILS ABSOLUTE AUTO 0.2 K/mm3 (0.0-0.4); EOSINOPHILS PERCENT AUTO 2.2 % (0.0-6.0); HEMATOCRIT 29.5 % (37.0-47.0); HEMOGLOBIN 10.2 gm/dl (12.0-16.0); IMMATURE GRAN ABSOLUTE AUTO 0.02 K/mm3 (0.00-0.05); IMMATURE GRAN PERCENT AUTO 0.3 % (0.0-0.4); LYMPHOCYTES ABSOLUTE AUTO 2.8 K/mm3 (1.0-4.8); LYMPHOCYTES PERCENT AUTO 35.3 % (24.0-44.0); MEAN CORPUSCULAR HEMOGLOBIN 30.4 pg (28.0-32.0); MEAN CORPUSCULAR HGB CONC 34.6 g/dl (32.0-36.0); MEAN CORPUSCULAR VOLUME 88.1 fl (83.0-99.0); MEAN PLATELET VOLUME 9.7 fl (9.4-12.3); MONOCYTES ABSOLUTE AUTO 0.6 K/mm3 (0.0-0.8); MONOCYTES PERCENT AUTO 7.3 % (0.0-8.0); NEUTROPHILS ABSOLUTE AUTO 4.2 K/mm3 (1.8-7.7); NEUTROPHILS PERCENT AUTO 53.5 % (41.0-71.0); PLATELET COUNT,PLT 389 K/mm3 (150-400); RED BLOOD CELL COUNT 3.35 M/mm3 (4.10-5.30); WHITE BLOOD CELL COUNT,WBC 7.82 K/mm3 (3.9-11.3)
[2024-06-14] MEDS: Sodium Chloride 0.9% 500 ML IV ONE (23:09)
[2024-06-14] MEDS: Famotidine 20 MG/2 ML SDV IVPUSH ONE (23:10)
[2024-06-14 23:17] LABS: APPEARANCE,URINE CLEAR (Clear); BILIRUBIN,URINE 2+ (Negative); COLOR,URINE DARK YELLOW (Yellow); GLUCOSE,URINE NEGATIVE (Negative); KETONES,URINE 1+ (Negative); LEUKOCYTE ESTERASE,URINE NEGATIVE (Negative); NITRITE,URINE POSITIVE (Negative); OCCULT BLOOD,URINE NEGATIVE (Negative); PH,URINE 5.5 (5.0-8.0); PROTEIN,URINE NEGATIVE (Negative)
[2024-06-14 23:20] LABS: INR 1.51; PROTHROMBIN TIME 15.6 SECONDS (9.7-12.0)
[2024-06-14 23:26] LABS: ETHANOL BLOOD MEDICAL 0.12 gm% (0.00); LIPASE 15 U/L (16-77); MAGNESIUM 1.9 mg/dL (1.8-2.4)
[2024-06-14 23:33] LABS: BACTERIA,URINE MODERATE /hpf (FEW); HYALINE CASTS,URINE 30-40 /lpf (0-5); MUCUS,URINE FEW /hpf (FEW); RBC,URINE 0-5 /hpf (0-5); WBC,URINE 0-5 /hpf (0-5)
[2024-06-14 23:40] LABS: BARBITURATE SCREEN,URINE NEGATIVE (CUTOFF=200); BENZODIAZEPINES SCREEN,URINE NEGATIVE (CUTOFF=150); BUPRENORPHINE SCREEN,URINE NEGATIVE (CUTOFF=10); METHADONE SCREEN, URINE PRESUMPTIVE POSITIVE (CUTOFF=200); METHAMPHETAMINES SCREEN, URINE PRESUMPTIVE POSITIVE (CUTOFF=500); OXYCODONE SCREEN,URINE NEGATIVE (CUT0FF=100); THC SCREEN,URINE 20 NG/ML NEGATIVE (CUTOFF=50)
[2024-06-14] MEDS: Iopamidol 612 MG/ML 100 ML Bottle IVPUSH ONE (23:40)
[2024-06-14 23:43] LABS: AMPHETAMINES SCREEN, URINE NEGATIVE (CUTOFF=500)
[2024-06-14 23:45] LABS: TROPONIN I HIGH SENSITIVITY < 4 pg/mL (<=51)
[2024-06-15 00:32] LABS: A/G RATIO 0.3 (1-2); ALBUMIN 1.3 g/dl (3.4-5.0); ANION GAP 14.3 (5-15); BILIRUBIN TOTAL 3.3 mg/dL (0.2-1.0); BUN/CREATININE RATIO 3.6 (14-18); CALCIUM 7.6 mg/dL (8.5-10.1); CREATININE 1.4 mg/dL (0.55-1.02); EST CRCL DRUG DOSING (CG) 52.27 mL/min; POTASSIUM,K 4.3 mEq/L (3.5-5.1)
[2024-06-15] MEDS: Thiamine 100 MG in Sodium Chloride 0.9% 100 ML IV ONE (00:38)
[2024-06-15] MEDS: cefTRIAXone 1 GM in Sodium Chloride 0.9% 100 ML IV ONE (01:18)
[2024-06-15 07:50] VITALS: BP 106/90; PULSE 100
== END 2024-06-15 07:46 | disposition home or self-care (01) ==
LOC: JD.ED 22:17
DX: N17.9 Acute kidney failure, unspecified (principal); N39.0 Urinary tract infection, site not specified; E87.1 Hypo-osmolality and hyponatremia; F19.10 Other psychoactive substance abuse, uncomplicated; K70.0 Alcoholic fatty liver; F10.129 Alcohol abuse with intoxication, unspecified; F17.200 Nicotine dependence, unspecified, uncomplicated; J44.9 Chronic obstructive pulmonary disease, unspecified; E66.9 Obesity, unspecified; Z79.899 Other long term (current) drug therapy; Z91.011 Allergy to milk products; Z91.040 Latex allergy status; Z91.048 Other nonmedicinal substance allergy status; Z68.34 Body mass index [BMI] 34.0-34.9, adult
CPT/HCPCS: 36415; 74177; 76705; 80053; 80306; 80307; 81001; 82947; 83605; 83690; 83735; 84484; 85025; 85610; 86140; 87040; 87086; 93005; 96361; 96365; 96367; 96375; 99284; J0696; J3411; J3490; J7030; Q9967; 93010

== ENCOUNTER 2024-06-28 03:15 | Emergency (ER) | payer MEDICAID ==
[2024-06-28 03:23] VITALS: BP 132/79; PULSE 100
[2024-06-28] MEDS ORDERED: Sodium Chloride 0.9% 10 ML Syringe FLUSH PRN (03:30)
[2024-06-28] MEDS: Sodium Chloride 0.9% 1,000 ML IV ONE (04:01)
[2024-06-28] MEDS: Ketorolac 15 MG/ML SDV IVPUSH ONE (04:04)
[2024-06-28 04:16] LABS: BASOPHILS ABSOLUTE AUTO 0.1 K/mm3 (0.0-0.2); EOSINOPHILS ABSOLUTE AUTO 0.3 K/mm3 (0.0-0.4); EOSINOPHILS PERCENT AUTO 2.5 % (0.0-6.0); HEMATOCRIT 29.5 % (37.0-47.0); HEMOGLOBIN 9.6 gm/dl (12.0-16.0); IMMATURE GRAN ABSOLUTE AUTO 0.02 K/mm3 (0.00-0.05); IMMATURE GRAN PERCENT AUTO 0.2 % (0.0-0.4); LYMPHOCYTES PERCENT AUTO 27.7 % (24.0-44.0); MEAN CORPUSCULAR HEMOGLOBIN 31.5 pg (28.0-32.0); MEAN CORPUSCULAR HGB CONC 32.5 g/dl (32.0-36.0); MEAN CORPUSCULAR VOLUME 96.7 fl (83.0-99.0); MEAN PLATELET VOLUME 8.8 fl (9.4-12.3); MONOCYTES ABSOLUTE AUTO 0.8 K/mm3 (0.0-0.8); MONOCYTES PERCENT AUTO 7.5 % (0.0-8.0); NEUTROPHILS ABSOLUTE AUTO 6.5 K/mm3 (1.8-7.7); NEUTROPHILS PERCENT AUTO 61.1 % (41.0-71.0); PLATELET COUNT,PLT 365 K/mm3 (150-400); RED BLOOD CELL COUNT 3.05 M/mm3 (4.10-5.30); WHITE BLOOD CELL COUNT,WBC 10.71 K/mm3 (3.9-11.3)
[2024-06-28 04:38] LABS: SLIDE REVIEW ABNORMAL SMEAR
[2024-06-28] MEDS: Diatrizoate Meglumine/Diatrizoate Sodium 37% 120 ML Bottle PO ONE (05:05)
[2024-06-28] MEDS: Iopamidol 612 MG/ML 100 ML Bottle IVPUSH ONE (05:05)
[2024-06-28 05:10] LABS: A/G RATIO 0.2 (1-2); ALANINE AMINOTRANSFERASE,ALT 29 U/L (14-59); ALBUMIN 1.1 g/dl (3.4-5.0); ALKALINE PHOSPHATASE 204 U/L (46-116); ANION GAP 10.6 (5-15); ASPARTATE AMNIOTRANSFERASE,AST 17 U/L (15-37); BILIRUBIN TOTAL 0.9 mg/dL (0.2-1.0); BLOOD UREA NITROGEN,BUN 5 mg/dL (7-18); BUN/CREATININE RATIO 5.6 (14-18); CALCIUM 7.1 mg/dL (8.5-10.1); CARBON DIOXIDE,CO2 23 mEq/L (21-32); CHLORIDE,CL 111 mEq/L (98-107); CREATININE 0.9 mg/dL (0.55-1.02); ESTIMATED GFR 81 mL/min (>60); LIPASE 13 U/L (16-77); POTASSIUM,K 3.6 mEq/L (3.5-5.1); PROTEIN TOTAL,TP 5.6 g/dl (6.4-8.2); SODIUM,NA 141 mEq/L (136-145)
[2024-06-28 05:14] LABS: GLUCOSE RANDOM 82 mg/dL (70-99)
[2024-06-28 06:36] LABS: APPEARANCE,URINE CLEAR (Clear); BILIRUBIN,URINE NEGATIVE (Negative); COLOR,URINE YELLOW (Yellow); GLUCOSE,URINE NEGATIVE (Negative); KETONES,URINE NEGATIVE (Negative); LEUKOCYTE ESTERASE,URINE NEGATIVE (Negative); NITRITE,URINE NEGATIVE (Negative); OCCULT BLOOD,URINE NEGATIVE (Negative); PROTEIN,URINE NEGATIVE (Negative)
== END 2024-06-28 07:25 | disposition home or self-care (01) ==
LOC: JD.ED 03:15
DX: R10.12 Left upper quadrant pain (principal); J44.9 Chronic obstructive pulmonary disease, unspecified; I50.9 Heart failure, unspecified; E66.9 Obesity, unspecified; F17.210 Nicotine dependence, cigarettes, uncomplicated; Z79.899 Other long term (current) drug therapy; Z91.048 Other nonmedicinal substance allergy status; Z91.040 Latex allergy status; Z91.011 Allergy to milk products; Z87.19 Personal history of other diseases of the digestive system
CPT/HCPCS: 36415; 74177; 80053; 81003; 83605; 83690; 84703; 85025; 93005; 96361; 96374; 99284; J1885; J7030; Q9963; Q9967; 93010

== ENCOUNTER 2024-07-15 13:48 | Emergency (ER) | payer MEDICAID ==
[2024-07-15 18:40] LABS: BASOPHILS ABSOLUTE AUTO 0.1 K/mm3 (0.0-0.2); BASOPHILS PERCENT AUTO 1.3 % (0.0-1.0); EOSINOPHILS ABSOLUTE AUTO 0.2 K/mm3 (0.0-0.4); EOSINOPHILS PERCENT AUTO 3.3 % (0.0-6.0); HEMOGLOBIN 9.5 gm/dl (12.0-16.0); IMMATURE GRAN ABSOLUTE AUTO 0.02 K/mm3 (0.00-0.05); IMMATURE GRAN PERCENT AUTO 0.3 % (0.0-0.4); LYMPHOCYTES ABSOLUTE AUTO 2.5 K/mm3 (1.0-4.8); MEAN CORPUSCULAR HEMOGLOBIN 30.1 pg (28.0-32.0); MEAN CORPUSCULAR HGB CONC 31.7 g/dl (32.0-36.0); MEAN CORPUSCULAR VOLUME 94.9 fl (83.0-99.0); MONOCYTES ABSOLUTE AUTO 0.6 K/mm3 (0.0-0.8); MONOCYTES PERCENT AUTO 8.6 % (0.0-8.0); NEUTROPHILS ABSOLUTE AUTO 3.6 K/mm3 (1.8-7.7); NEUTROPHILS PERCENT AUTO 51.5 % (41.0-71.0); PLATELET COUNT,PLT 354 K/mm3 (150-400); RED BLOOD CELL COUNT 3.16 M/mm3 (4.10-5.30); WHITE BLOOD CELL COUNT,WBC 7.01 K/mm3 (3.9-11.3)
[2024-07-15 19:11] LABS: A/G RATIO 0.3 (1-2); ALBUMIN 1.1 g/dl (3.4-5.0); ANION GAP 9.2 (5-15); BILIRUBIN TOTAL 0.6 mg/dL (0.2-1.0); BUN/CREATININE RATIO 4.3 (14-18); C-REACTIVE PROTEIN 1.93 mg/dL (<0.30); CREATININE 0.7 mg/dL (0.55-1.02); EST CRCL DRUG DOSING (CG) 104.53 mL/min; MAGNESIUM 1.6 mg/dL (1.8-2.4); POTASSIUM,K 3.2 mEq/L (3.5-5.1); PROTEIN TOTAL,TP 5.5 g/dl (6.4-8.2)
[2024-07-15] MEDS: Magnesium Oxide 400 MG Tab PO ONE (20:20)
[2024-07-15] MEDS: Sodium Chloride 0.9% 10 ML Syringe FLUSH PRN (20:20)
[2024-07-15] MEDS: Potassium Chloride 20 MEQ Tab.ER PO ONE (20:20)
[2024-07-15] MEDS: Furosemide 40 MG/4 ML VIAL IVPUSH ONE (20:20)
[2024-07-15] MEDS: Albumin 25% 12.5 GM/50 ML BAG IV ONE (20:52)
[2024-07-15 21:03] LABS: APPEARANCE,URINE SLT CLOUDY (Clear); BILIRUBIN,URINE NEGATIVE (Negative); COLOR,URINE YELLOW (Yellow); GLUCOSE,URINE NEGATIVE (Negative); KETONES,URINE NEGATIVE (Negative); LEUKOCYTE ESTERASE,URINE NEGATIVE (Negative); NITRITE,URINE POSITIVE (Negative); OCCULT BLOOD,URINE NEGATIVE (Negative); PROTEIN,URINE NEGATIVE (Negative)
[2024-07-15 21:10] LABS: BACTERIA,URINE MANY /hpf (FEW); MUCUS,URINE NOT SEEN /hpf (FEW); RBC,URINE 0-5 /hpf (0-5); SQUAMOUS EPITHELIAL CELLS,UR 0-5 /hpf (0-5); WBC,URINE 0-5 /hpf (0-5)
[2024-07-15 21:12] LABS: BARBITURATE SCREEN,URINE NEGATIVE (CUTOFF=200); BENZODIAZEPINES SCREEN,URINE NEGATIVE (CUTOFF=150); BUPRENORPHINE SCREEN,URINE NEGATIVE (CUTOFF=10); METHADONE SCREEN, URINE PRESUMPTIVE POSITIVE (CUTOFF=200); METHAMPHETAMINES SCREEN, URINE NEGATIVE (CUTOFF=500); OXYCODONE SCREEN,URINE NEGATIVE (CUT0FF=100); THC SCREEN,URINE 20 NG/ML NEGATIVE (CUTOFF=50)
[2024-07-15 21:14] LABS: AMPHETAMINES SCREEN, URINE NEGATIVE (CUTOFF=500)
[2024-07-15] MEDS: cefTRIAXone 2 GM in Sodium Chloride 0.9% 100 ML IV ONE (21:28)
[2024-07-15] MEDS: Amoxicillin/Clavulanate K 875-125 MG Tab PO ONE (21:29)
[2024-07-15] MEDS: Furosemide 20 MG Tab PO ONE (21:29)
[2024-07-15 22:12] VITALS: BP 112/70; PULSE 85
== END 2024-07-15 22:12 | disposition home or self-care (01) ==
LOC: SUPCPDRO 13:48 → JD.ED 13:48
DX: I50.9 Heart failure, unspecified (principal); E88.09 Other disorders of plasma-protein metabolism, not elsewhere classified; J44.9 Chronic obstructive pulmonary disease, unspecified; R60.0 Localized edema; E66.9 Obesity, unspecified; Z90.49 Acquired absence of other specified parts of digestive tract; Z79.899 Other long term (current) drug therapy; Z91.011 Allergy to milk products; Z91.040 Latex allergy status; Z91.09 Other allergy status, other than to drugs and biological substances; Z68.38 Body mass index [BMI] 38.0-38.9, adult
CPT/HCPCS: 36415; 71046; 80053; 80306; 81001; 83735; 83880; 84484; 85025; 86140; 87086; 87088; 87186; 93005; 96365; 96367; 96375; 99284; A9270; J0696; J1940; J3490; P9047; 93010